=== PATIENT | male | born 1945 | race Hispanic/Latino ===

== ENCOUNTER → 2019-08-26 | Outpatient (CLI) | payer OTHER | END | disposition home or self-care (01) | LOC: RAH 13:14 | PROVIDERS: ATTEND Internal Medicine | DX: G31.9 Degenerative disease of nervous system, unspecified (principal); S09.90XS Unspecified injury of head, sequela; X58.XXXS Exposure to other specified factors, sequela | CPT/HCPCS: 70450 ==

== ENCOUNTER → 2019-12-22 | Outpatient (CLI) | payer OTHER ==
[~2019-12-22] MED LIST: IOHEXOL-350 50ML VIAL IV ONE
== END | disposition home or self-care (01) ==
LOC: RAH 13:23
PROVIDERS: ATTEND Internal Medicine
DX: I67.82 Cerebral ischemia (principal); I63.9 Cerebral infarction, unspecified; G31.1 Senile degeneration of brain, not elsewhere classified; R41.841 Cognitive communication deficit
CPT/HCPCS: 70470; Q9967

== ENCOUNTER 2020-03-12 19:12 | Observation (INO) | payer OTHER ==
[~2020-03-12] VITALS: Ht 162.6 cm; Wt 77.5 kg
[2020-03-12 20:06] LABS: BASOPHILS % (AUTO) 0.4 % (0.0-5.0); EOSINOPHILS % (AUTO) 0.1 % (0.0-8.0); HEMATOCRIT 37.8 % (42-54); LYMPHOCYTES % (AUTO) 9.6 % (21.0-51.0); MEAN CORPUSCULAR HEMOGLOBIN 30.9 pg (27.0-33.0); MEAN CORPUSCULAR HGB CONC 36.5 g/dL (32.0-36.0); MEAN CORPUSCULAR VOLUME 84.6 fL (79-99); MONOCYTES % (AUTO) 4.8 % (3.0-13.0); NEUTROPHILS % (AUTO) 84.8 % (40.0-77.0); PLATELET COUNT (AUTO) 205 K/uL (130-400); RED BLOOD CELL COUNT(AUTO) 4.47 MIL/uL (4.50-6.20); RED CELL DISTRIBUTION WIDTH 13.5 % (11.0-15.5); WHITE BLOOD COUNT (AUTO) 7.5 K/uL (4.8-10.8)
[2020-03-12 20:20] LABS: INR 0.98 (0.85-1.15); PARTIAL THROMBOPLASTIN TIME 25.5 SEC (26.3-35.5); PROTHROMBIN TIME 10.6 SEC (9.6-11.6)
[2020-03-12 20:26] LABS: APPEARANCE,URINE Clear (CLEAR); BILIRUBIN,URINE Negative (NEGATIVE); COLOR,URINE Yellow (YELLOW); GLUCOSE, URINE (UA) >=1000 mg/dL (NEGATIVE); KETONES,URINE 15 mg/dL (NEGATIVE); LEUKOCYTE ESTERASE ,URINE Negative (NEGATIVE); NITRATE,URINE Negative (NEGATIVE); OCCULT BLOOD,URINE Small (NEGATIVE); PROTEIN,URINE POS 2+ mg/dL (NEGATIVE); UROBILINOGEN,URINE 0.2 mg/dL (0.2-1.0)
[2020-03-12 20:33] LABS: AMPHET/METH SCREEN,URINE NEGATIVE (NEGATIVE); BARBITURATE SCREEN, URINE NEGATIVE (NEGATIVE); BENZODIAZEPINES SCREEN,URINE NEGATIVE (NEGATIVE); CANNABINOID SCREEN,URINE NEGATIVE (NEGATIVE); COCAINE SCREEN,URINE NEGATIVE (NEGATIVE); OPIATE SCREEN,URINE NEGATIVE (NEGATIVE); PHENCYCLIDINE SCREEN,URINE NEGATIVE (NEGATIVE); WBC,URINE 0-1 /HPF (0-1)
[2020-03-12 20:34] LABS: BACTERIA,URINE Few /HPF (None Seen); SQUAMOUS EPITHELIAL CELL,UR Rare /HPF (0-2)
[2020-03-12] MEDS ORDERED: HALOPERIDOL LACTATE 5 MG/ML VIAL ONE (20:34)
[2020-03-12 20:36] LABS: CREATININE 1.2 mg/dL (0.5-1.5); POTASSIUM 3.9 mmol/L (3.5-5.1)
[2020-03-12] MEDS ORDERED: LORAZEPAM 2 MG/ML 1 ML VIAL ONE (20:45)
[2020-03-12] MEDS ORDERED: INSULIN HUMULIN R 100 UNIT/ML 3ML ONE (20:45)
[2020-03-12 20:49] LABS: ALBUMIN 3.8 g/dL (3.5-5.0); BILIRUBIN,TOTAL 0.9 mg/dL (0.2-1.0); TOTAL PROTEIN, SERUM 7.4 g/dL (6.0-8.3); TROPONIN I 0.38 ng/mL (0.00-0.06)
[2020-03-12] MEDS ORDERED: ASPIRIN 325 MG TABLET ONE (20:55)
[2020-03-12] MEDS ORDERED: NITROGLYCERIN 1GM/1 INCH PACKET TD ONE (20:55)
[2020-03-12] MEDS ORDERED: LORAZEPAM 2 MG/ML 1 ML VIAL IVP PRN (21:30)
[2020-03-12] MEDS: CEFTRIAXONE SODIUM 1 GM IVP SCH (21:30)
[2020-03-12] MEDS ORDERED: DEXTROSE 50%-WATER 50 ML DISP.SYRIN IV PRN (21:30)
[2020-03-12] MEDS ORDERED: MORPHINE SULFATE 2 MG/ML 1ML SYG IV PRN (21:30)
[2020-03-12] MEDS ORDERED: GLUCAGON 1MG KIT 1 MG ML IM PRN (21:30)
[2020-03-12] MEDS ORDERED: SERT25TA5 PO (22:28)
[2020-03-12] MEDS ORDERED: ENAL20TA18 PO (22:28)
[2020-03-12] MEDS ORDERED: METF-446 PO (22:28)
[2020-03-12] MEDS ORDERED: CLON0.252 PO (22:28)
[2020-03-12] MEDS ORDERED: GLIP10TA9 PO (22:28)
[2020-03-12] MEDS ORDERED: QUET100T33 PO (22:28)
[2020-03-12 22:30] VITALS: BP 152/77
[2020-03-12] MEDS ORDERED: CEFTRIAXONE SODIUM 1 GM ONE (22:44)
[2020-03-13 04:00] VITALS: BP 140/78
[2020-03-13] MEDS: INSULIN HUMULIN R 100 UNIT/ML 3ML SQ SCH ×4 (05:29→21:57)
--- NOTE | 2020-03-13 05:50 | NUR ---
patient has been asleep all night. he is respectful and follows commands when awake. he is blind. i took pictures of his skin tears of his right foot and leg. i applied saline and kerlex to that area. i spoke with his and she verbalizes understanding of condition. she will come today in the morning.
--- NOTE | 2020-03-13 08:00 | NUR ---
AM SHIFT ASSESSMENT, PT. IS BLIND AND IS AT BEDSIDE AND ASST, WITH HIS CARE.
--- NOTE | 2020-03-13 08:21 | NUR ---
NOTIFIED Erika RAYGOZA OF HIGH TROPONIN LEVEL, ORDERS GIVEN AND ENTERED. NO CARDIO. CONSULT AT THIS TIME.
[2020-03-13] MEDS: FAMOTIDINE 20MG TAB 20 MG TAB PO SCH (09:12)
[2020-03-13] MEDS: ENOXAPARIN SODIUM 40 MG/0.4 ML SYRINGE SQ SCH (09:13)
[2020-03-13 09:45] LABS: TROPONIN I 0.37 ng/mL (0.00-0.06)
[2020-03-13 10:03] VITALS: BP 141/76
[2020-03-13] MEDS ORDERED: NON-FORMULARY MEDICATION 1 EACH (Sertraline HCl 25 MG) PO SCH (10:40)
[2020-03-13 12:03] LABS: TROPONIN I 0.33 ng/mL (0.00-0.06)
[2020-03-13 14:43] VITALS: BP 129/74
[2020-03-13 15:01] LABS: TROPONIN I 0.28 ng/mL (0.00-0.06)
[2020-03-13] MEDS: ENALAPRIL MALEATE 10 MG TABLET PO SCH (16:49)
[2020-03-13] MEDS: SODIUM CHLORIDE 0.9% 1000ML 1,000 ML IV SCH (16:49)
[2020-03-13 16:59] VITALS: BP 150/75
--- NOTE | 2020-03-13 18:05 | NUR ---
INITIAL: Met w pt and spouse this afternoon to discuss dcp. Per spouse, prior to admission pt was living at home. He requires BUS BOY for ambulation and needs assistance w ADLs. Pt has at home a walker and wc. Per pt's spouse dcp is for pt to return home. CM to continue to follow and wait for Md recommendations. Addendum: 03/13/20 at 1806 by SUMEET KNUTSON Amended: Links added.
[2020-03-13] MEDS ORDERED: QUETIAPINE FUMARATE 100 MG TAB ONE (18:36)
[2020-03-13] MEDS: CEFTRIAXONE SODIUM 1 GM IVP SCH ×2 (19:41→19:54)
[2020-03-13] MEDS: CLONAZEPAM 0.5 MG TABLET PO SCH (19:41)
[2020-03-13 20:00] VITALS: BP 149/80
[2020-03-13] MEDS ORDERED: QUETIAPINE FUMARATE 100 MG TAB PO SCH (21:00)
[2020-03-13] MEDS ORDERED: CLONAZEPAM 0.25 MG PO SCH (21:00)
[2020-03-14] VITALS: BP 111/55
[2020-03-14] MEDS: SODIUM CHLORIDE 0.9% 1000ML 1,000 ML IV SCH ×2 (00:55→09:00)
[2020-03-14 04:00] VITALS: BP 123/65
--- NOTE | 2020-03-14 05:58 | NUR ---
patient has psychology consult. texted doctor carleen this morning to let him know about the consult. pending call back or acknowledgement
[2020-03-14 06:08] LABS: BASOPHILS % (AUTO) 0.9 % (0.0-5.0); EOSINOPHILS % (AUTO) 1.5 % (0.0-8.0); HEMATOCRIT 33.4 % (42-54); LYMPHOCYTES % (AUTO) 21.5 % (21.0-51.0); MEAN CORPUSCULAR HEMOGLOBIN 30.5 pg (27.0-33.0); MEAN CORPUSCULAR HGB CONC 35.6 g/dL (32.0-36.0); MEAN CORPUSCULAR VOLUME 85.6 fL (79-99); MONOCYTES % (AUTO) 7.3 % (3.0-13.0); NEUTROPHILS % (AUTO) 68.4 % (40.0-77.0); PLATELET COUNT (AUTO) 158 K/uL (130-400); RED CELL DISTRIBUTION WIDTH 13.5 % (11.0-15.5); WHITE BLOOD COUNT (AUTO) 5.4 K/uL (4.8-10.8)
[2020-03-14 06:22] LABS: ALBUMIN 3.1 g/dL (3.5-5.0); BILIRUBIN,TOTAL 0.4 mg/dL (0.2-1.0); MAGNESIUM 1.6 mg/dL (1.80-2.40); POTASSIUM 3.4 mmol/L (3.5-5.1); TOTAL PROTEIN, SERUM 6.3 g/dL (6.0-8.3)
[2020-03-14] MEDS: INSULIN HUMULIN R 100 UNIT/ML 3ML SQ SCH ×2 (06:35→11:30)
[2020-03-14] MEDS ORDERED: MAGNESIUM 2GM PREMIX 50ML 50 ML IV ONE (06:38)
[2020-03-14] MEDS ORDERED: MAGNESIUM 2GM PREMIX 50ML 50 ML IV PRN (06:45)
[2020-03-14 07:59] VITALS: BP 156/82
[2020-03-14] MEDS ORDERED: SERTRALINE HCL 50 MG TABLET PO SCH (09:00)
[2020-03-14] MEDS: ENALAPRIL MALEATE 10 MG TABLET PO SCH (10:18)
[2020-03-14] MEDS: FAMOTIDINE 20MG TAB 20 MG TAB PO SCH (10:18)
[2020-03-14] MEDS: ENOXAPARIN SODIUM 40 MG/0.4 ML SYRINGE SQ SCH (10:22)
[2020-03-14] MEDS: CLONAZEPAM 0.5 MG TABLET PO SCH (10:22)
[2020-03-14 11:38] VITALS: BP 152/82
--- NOTE | 2020-03-14 14:37 | NUR ---
discharge called hanna javier for dr. medrano to clarify discharge orders..informed her there was still a pending neuro consult...she stated family does not want to change patient's medications, does not want any more medical care from the hospital but instead they prefer to follow up with his pcp...thus, pt order has been entered for d/c.
--- NOTE | 2020-03-14 15:52 | NUR ---
discharge instructions went over discharge instructions with patient and spouse...answered all questions and concerns..they will follow up with pcp tomorrow and pecan picker prescriptions sent to [facility]...removed iv with no issues...director it transferred patient to exit doors and vehicle via wheelchair..
[2020-03-14] MEDS ORDERED: CLONAZEPAM 1 MG TABLET PO SCH (21:00)
[2020-03-15] MEDS ORDERED: FLUOXETINE HCL 20 MG CAPSULE PO SCH (09:00)
== END 2020-03-14 15:45 | disposition home or self-care (01) ==
LOC: EDH 19:12 → EDHIP 21:05 → INTOOBSV 21:05 → 3DH 22:00
PROVIDERS: ADMIT Internal Medicine Critical Care Medicine; ATTEND Internal Medicine Critical Care Medicine
DX: E86.9 Volume depletion, unspecified (principal); Z20.828 Contact with and (suspected) exposure to other viral communicable diseases; R41.82 Altered mental status, unspecified; F23 Brief psychotic disorder; M62.82 Rhabdomyolysis; E11.65 Type 2 diabetes mellitus with hyperglycemia; E86.0 Dehydration; I10 Essential (primary) hypertension; R29.6 Repeated falls; F41.9 Anxiety disorder, unspecified; H54.7 Unspecified visual loss; R53.81 Other malaise; I24.9 Acute ischemic heart disease, unspecified; Z79.84 Long term (current) use of oral hypoglycemic drugs; Z79.899 Other long term (current) drug therapy
CPT/HCPCS: 36415 ×3; 70450; 71045; 80053 ×2; 80305; 81001; 82140 ×2; 82550 ×4; 82728; 82948 ×6; 83605 ×2; 83735; 83874 ×4; 83880; 84145; 84484 ×4; 85025 ×2; 85610; 85730; 86900; 86901; 87040 ×2; 87088; 87426; 93005; 96361 ×2; 96365; 96366; 96372 ×2; 96375 ×2; 99291; G0378 ×4; J0696 ×2; J1630; J1650 ×2; J1815 ×3; J2060 ×2; J3475; J7030; U0003

== ENCOUNTER 2024-06-27 13:08 | Inpatient (IN) | payer OTHER ==
[~2024-06-27] VITALS: Ht 165.1 cm; Wt 68.0 kg
[~2024-06-27 13:08] MED LIST changes: +CLON0.252 PO; +ENAL-91 PO; +GLIP10TA16 PO; -IOHEXOL-350 50ML VIAL IV ONE; +METF-446 PO; +QUET100T34 PO; +SERT-438 PO
--- NOTE | 2024-06-27 13:37 | EKG ---
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
--- NOTE | 2024-06-27 13:45 | ERN ---
General Chief Complaint: Multiple Complaints Stated Complaint: MULTIPLE COMPLAINTS Time Seen by MD: 13:14 History of Present Illness Initial Comments 79-year-old male brought in by EMS for altered mentation. Patient was history of dementia. According to the family he has not slept for about 36 hours now. He was quite agitated, and has been complaining of a possible headache. Patient is an unreliable historian, there was not a good history about what is going on. He denies any complaints at this time. Allergies: Coded Allergies: No Known Allergies (Unverified Allergy, Mild, 03/12/20) Home Meds Reported Medications Aspirin (Aspirin EC) 81 Mg Tablet.dr, 1 TAB PO DAILY for 30 Days, #30 TAB 0 Refills 06/27/24 Losartan Potassium (Losartan Potassium) 25 Mg Tablet, 1 TAB PO DAILY for 30 Days, #30 TAB 0 Refills 06/27/25 Ergocalciferol (Vitamin D2) (Vitamin D2) 1,250 Mcg (10110 Unit) Capsule, 1 CAP PO QWEEK for 28 Days, #4 CAP 0 Refills 06/27/24 Escitalopram Oxalate (Escitalopram Oxalate) 10 Mg Tablet, 1 TAB PO DAILY for 30 Days, #30 TAB 0 Refills 06/27/24 Glipizide (Glipizide ER) 5 Mg Tab.er.24, 1 TAB PO DAILY for 30 Days, #30 TAB 0 Refills 25 Clonazepam (Clonazepam) 0.25 Mg Tab.rapdis, 0.25 MG PO BID, TAB 03/12/20 Quetiapine Fumarate (Quetiapine Fumarate) 100 Mg Tablet, 100 MG PO HS, TAB 03/12/20 Sertraline HCl (Sertraline HCl) 25 Mg Tablet, 25 MG PO DAILY, TAB 03/12/20 Metformin HCl (Metformin HCl) 1,000 Mg Tablet, 1000 MG PO BIDMEALS, TAB 03/12/20 Enalapril Maleate (Enalapril Maleate) 20 Mg Tablet, 20 MG PO DAILY, TAB 03/12/20 Glipizide (Glipizide) 10 Mg Tablet, 10 MG PO BID, TAB 03/12/20 Past Medical History Past Medical History: Dementia, Diabetes-Type II, Hypertension Past Surgical History: Other ROS Dictation Unable to obtain due to patient's altered mentation Physical Exam Physical Exam Dictation VITAL SIGNS: Reviewed. GENERAL APPEARANCE: Alert, not oriented, agitated HEAD AND FACE: Non-traumatic. EYES: PERRL, pink conjunctivas, eyelid no trauma, anterior chamber clear. EARS: Pinnas intact and no signs of trauma or erythema. Ear canals clear and no discharge. TMs no erythema. NOSE: No discharge, no bleeding. OROPHARYNX: Mouth normal, teeth no caries, tongue pink. Pharynx clear, no erythema. Tonsils no exudates, no abscesses noted. Mucous membrane moist. NECK: Supple, non-tender, no thyromegaly, no masses, no JVD, no bruits. BREAST: Deferred. CHEST: No tenderness, no crepitus, no paradoxical movement, no retractions. LUNGS: Clear, well-ventilated, symmetric, no rales, no wheezing, no rhonchi, no stridor, good breath sounds bilaterally. HEART: Regular rate, regular rhythm, no murmur, no gallops. VASCULAR: No peripheral edema. ABDOMEN: Soft, positive bowel sounds, nondistended, no guarding, nontender, no rebound, no masses no hepatomegaly, no splenomegaly, no Crump's sign, no hernias. RECTAL: Deferred. GENITAL: Deferred. NEUROLOGICAL: Normal speech, gross motor function intact, gross sensory function intact. MUSCULOSKELETAL: Neck nontender, full range of motion, back nontender, full range of motion. EXTREMITIES: Nontender, full range of motion. SKIN: Color pink, dry, no turgor, no rash, no lacerations, no abrasions, no contusions. LYMPHATICS: Deferred. Results Laboratory and Microbiology Lab and Micro Result Laboratory Tests Test 06/27/24 13:43 06/27/24 14:30 White Blood Count 9.5 K/uL (4.8-10.8) Red Blood Count 4.61 MIL/uL (4.50-6.20) Hemoglobin 14.3 g/dL (14.0-18.0) Hematocrit 39.5 % (42-54) L Mean Corpuscular Volume 85.7 fL (79-99) Mean Corpuscular Hemoglobin 31.0 pg (27.0-33.0) Mean Corpuscular Hemoglobin Concent 36.2 g/dL (32.0-36.0) H Red Cell Distribution Width 13.2 % (11.0-15.5) Platelet Count 189 K/uL (130-400) Mean Platelet Volume 9.5 fL (7.5-10.5) Immature Granulocyte % (Auto) 0.4 % (0-1) Neutrophils (%) (Auto) 86.2 % (40.0-77.0) H Lymphocytes (%) (Auto) 7.3 % (21.0-51.0) L Monocytes (%) (Auto) 5.8 % (3.0-13.0) Eosinophils (%) (Auto) 0.0 % (0.0-8.0) Basophils (%) (Auto) 0.3 % (0.0-5.0) Neutrophils # (Auto) 8.2 K/uL (1.8-7.7) H Lymphocytes # (Auto) 0.7 K/uL (1.0-4.8) L Monocytes # (Auto) 0.6 K/uL (0.1-1.0) Eosinophils # (Auto) 0.00 K/uL (0.00-0.70) Basophils # (Auto) 0.03 K/uL (0.00-0.20) Absolute Immature Granulocyte (auto 0.04 K/uL (0-1) Nucleated Red Blood Cells 0.0 % (0.0-0.19) White Cell Morphology Comment See comments Red Blood Cell Morphology ANISO 1+ Sodium Level 139 mmol/L (136-145) Potassium Level 3.5 mmol/L (3.5-5.1) Chloride Level 100 mmol/L (101-111) L Carbon Dioxide Level 26 mmol/L (21-32) Blood Urea Nitrogen 17 mg/dL (7-18) Creatinine 1.3 mg/dL (0.5-1.3) Glomerular Filtration Rate Calc 56 mL/min (>90) Random Glucose 250 mg/dL (70-105) H Total Calcium 8.7 mg/dL (8.5-10.1) Ammonia < 10 umol/L (11-32) L Total Creatine Kinase 592 U/L (21-232) #*H Troponin I High Sensitivity 280.7 ng/L (4-75) *H B-Type Natriuretic Peptide 300 pg/mL (0-100) H Urine Color LIGHT-YELLOW (YELLOW) Urine Appearance CLEAR (CLEAR) Urine pH 5.5 (5.0-8.0) Urine Specific Fowler 1.014 (1.001-1.031) Urine Protein 70 mg/dL (NEGATIVE) H Urine Glucose (UA) >=1000 mg/dL (NEGATIVE) H Urine Ketones 60 mg/dL (NEGATIVE) H Urine Occult Blood MODERATE (NEGATIVE) H Urine Nitrate NEGATIVE (NEGATIVE) Urine Bilirubin NEGATIVE mg/dL (NEGATIVE) Urine Urobilinogen 0.2 mg/dL (0.2-1.0) Urine Leukocyte Esterase NEGATIVE Jose/uL Urine RBC 6-10 /HPF (0-1) H Urine WBC 2-5 /HPF (0-1) H Urine Bacteria None /HPF (None Seen) MDM CC: Altered mentation and agitation Historian: EMS due to patient's dementia. Comorbidities: Advanced age, dementia, DM two, hypertension Limitations by social determinants of health: None Differential diagnosis: Worsening dementia, infection, UTI, brain injury, electrolyte abnormalities, other. Vital signs: Stable, remained stable in the ED. EKG: Sinus rhythm rate of 88, low voltage, left axis deviation, early R-wave progression, intervals are stable no STEMI. Independently interpreted by me. Labs ( independently ordered and interpreted by me ): CBC shows no leukocytosis but there is a left shift without bands. Metabolic panel shows stable electrolytes. The troponin is elevated to 80. We will repeat. CK elevated [address] head without contrast (independently interpreted by me): No acute bleed or acute components. Consistent with chronic changes. CXR (independently interpreted by me ): No focal infiltrates cardiomegaly or acute abnormalities. Treatment in ER: IV fluids, aspirin, electrolyte replacement. Consultation: Hospitalist for admission ED Course Orders Procedure Category Date Status Time Ct Head/Brain W/O CT 06/27/24 Resulted Contrast 13:20 Ammonia LAB 06/27/24 Complete 13:20 Cardiac Panel LAB 06/27/24 Complete 13:20 Cbc With Differential LAB 06/27/24 Complete 13:20 Basic Metabolic Panel LAB 06/27/24 Complete 13:20 B-Type Natriuretic LAB 06/27/24 Complete Peptide 13:20 Urinalysis Profile LAB 06/27/24 Complete 13:20 12 Lead Ekg Tracing- EKG 06/27/24 Resulted Technical 13:26 Lorazepam 2 Mg PHA 06/27/24 Complete (Ativan) 15:30 0.9%Nacl 1000ml (Ns PHA 06/27/24 Complete 1000ml) 15:30 Troponin I High LAB 06/27/24 Complete Sensitivity 15:49 Vital Signs Date Time Temp Pulse Resp B/P (MAP) Pulse Ox O2 Delivery O2 Flow Rate FiO2 06/27/24 15:50 98.1 83 16 134/70 99 Room Air* 0 21 06/27/24 14:15 98.2 83 16 180/70 98 Room Air* 0 21 06/27/24 13:15 97.9 94 20 152/72 99 Room Air DX & DISP Disposition: Inpatient Departure Impression: Primary Impression: Dementia Additional Impressions: Altered mental state, Elevated troponin, Agitation, Rhabdomyolysis Critical Time: 30 minutes (Critical Care Procedure NoteAuthorized and Performed by: meTotal critical care time: Approximately 36 minutesDue to a high probability of clinically significant, life threatening deterioration, the patient required my highest level of preparedness to intervene emergently and I personally spent this critical care time directly and personally managing the patient. This critical care time included obtaining a history; examining the patient; pulse oximetry; ordering and review of studies; arranging urgent treatment with development of a management plan; evaluation of patient's response to treatment; frequent reassessment; and, discussions with other providers.This critical care time was performed to assess and manage the high probability of imminent, life-threatening deterioration that could result in multi-organ failure. It was exclusive of separately billable procedures and treating other patients and teaching time.Please see MDM section and the rest of the note for further information on patient assessment and treatment.) Condition: Stable Referrals: SARAH BETH POWER MD (PCP) PRADEEP SOTELO DO Jun 27, 2024 13:45 KRISTEL REYNOLDS MD Jun 27, 2024 15:41
[2024-06-27 13:53] LABS: BASOPHILS # (AUTO) 0.03 K/uL (0.00-0.20); BASOPHILS % (AUTO) 0.3 % (0.0-5.0); HEMATOCRIT 39.5 % (42-54); IMMATURE GRANULOCYTE ABSOLUTE 0.04 K/uL (0-1); LYMPHOCYTES # (AUTO) 0.7 K/uL (1.0-4.8); LYMPHOCYTES % (AUTO) 7.3 % (21.0-51.0); MEAN CORPUSCULAR HGB CONC 36.2 g/dL (32.0-36.0); MEAN CORPUSCULAR VOLUME 85.7 fL (79-99); MONOCYTES # (AUTO) 0.6 K/uL (0.1-1.0); MONOCYTES % (AUTO) 5.8 % (3.0-13.0); NEUTROPHILS # (AUTO) 8.2 K/uL (1.8-7.7); NEUTROPHILS % (AUTO) 86.2 % (40.0-77.0); PLATELET COUNT (AUTO) 189 K/uL (130-400); RED BLOOD CELL COUNT(AUTO) 4.61 MIL/uL (4.50-6.20); RED CELL DISTRIBUTION WIDTH 13.2 % (11.0-15.5); WHITE BLOOD COUNT (AUTO) 9.5 K/uL (4.8-10.8)
[2024-06-27 14:32] LABS: AMMONIA < 10 umol/L (11-32)
--- NOTE | 2024-06-27 14:32 | HMCIMG ---
CT HEAD WITHOUT CONTRAST INDICATION: Altered mental status TECHNIQUE: Noncontrast axial helical CT images from the vertex through the skull base using 5 mm slice thickness without contrast material. Coronal and sagittal reconstructions were also included. Dose reduction techniques was used using integrated, automated and adaptive dose reduction exposure control. CT was performed with one or more of the following dose reduction techniques: Automated exposure control, adjustment of the mA and/or kV according to patient size, or use of iterative reconstruction technique. COMPARISON: 03/12/2020 FINDINGS: Scattered and coalescent subcortical and periventricular white matter low attenuating areas likely represent residual of chronic small vessel arteriopathy and/or remote vascular insult. Generalized mild cerebral cortical atrophy is present.. No evidence for abnormal extra-axial fluid collections or masses. The ventricles and sulci are normal in size and configuration. No evidence for intracranial parenchymal, epidural, or subdural hemorrhage, mass effect or midline shift. The gibson-white matter differentiation is well preserved. No secondary evidence to suggest acute ischemia. Mild calcific plaque is present along the shields of the cavernous segments of both internal carotid arteries. The brainstem and cerebellum appear normal. The visualized orbits appear unremarkable. The visible paranasal sinuses and mastoid air cells are clear. The calvarium appears normal. IMPRESSION: Chronic white matter ischemic changes, mild brain atrophy, and arteriosclerotic disease as described, without acute component.
[2024-06-27 14:41] LABS: B-TYPE NATRIURETIC PEPTIDE 300 pg/mL (0-100)
[2024-06-27 14:47] LABS: CARBON DIOXIDE 26 mmol/L (21-32); CHLORIDE 100 mmol/L (101-111); CREATININE 1.3 mg/dL (0.5-1.3); GLOMERULAR FILTR. RATE CALC 56 mL/min (>90); GLUCOSE,RANDOM 250 mg/dL (70-105); POTASSIUM 3.5 mmol/L (3.5-5.1); SODIUM SERUM 139 mmol/L (136-145); UREA NITROGEN, BLOOD 17 mg/dL (7-18)
[2024-06-27 15:11] LABS: ADD UA MICROSCOPIC YES; APPEARANCE,URINE CLEAR (CLEAR); BILIRUBIN,URINE NEGATIVE (NEGATIVE); COLOR,URINE LIGHT-YELLOW (YELLOW); GLUCOSE, URINE (UA) >=1000 mg/dL (NEGATIVE); KETONES,URINE 60 mg/dL (NEGATIVE); LEUKOCYTE ESTERASE ,URINE NEGATIVE Leu/uL (NEGATIVE); NITRATE,URINE NEGATIVE (NEGATIVE); OCCULT BLOOD,URINE MODERATE (NEGATIVE); PH,URINE 5.5 (5.0-8.0); PROTEIN,URINE 70 mg/dL (NEGATIVE); UROBILINOGEN,URINE 0.2 mg/dL (0.2-1.0)
[2024-06-27 15:12] LABS: CREATINE KINASE, TOTAL 592 U/L (21-232)
[2024-06-27 15:16] LABS: MUCUS,URINE RARE LPF (None Seen)
[2024-06-27] MEDS: LORazepam 2 MG/ML 1 ML VIAL IVP ONE (15:32)
[2024-06-27] MEDS: 0.9%NACL 1000ML 1,000 ML IV ONE (15:32)
[2024-06-27] MEDS ORDERED: ESCI-8 PO (16:02)
[2024-06-27] MEDS ORDERED: LOSA25TA41 PO (16:02)
[2024-06-27] MEDS ORDERED: GLIP-162 PO (16:02)
[2024-06-27] MEDS ORDERED: ASPI-1443 PO (16:02)
[2024-06-27] MEDS ORDERED: ERGO500093 PO (16:02)
--- NOTE | 2024-06-27 16:03 | NUR ---
MED REC DONE AT THIS TIME.
[2024-06-27 16:29] LABS: HEMOGLOBIN A1C 6.4 % (4.0-6.0)
[2024-06-27] MEDS ORDERED: PoTASSium chloRIDE 20MEQ ER 20 MEQ ERTAB PO PRN (16:30)
[2024-06-27 16:46] LABS: BILIRUBIN,TOTAL 1.2 mg/dL (0.2-1.0); THYROID STIMULATING HORMONE 0.77 uIU/mL (0.36-3.74); TOTAL PROTEIN, SERUM 6.2 g/dL (6.0-8.3)
[2024-06-27 16:52] LABS: ALBUMIN 3.4 g/dL (3.5-5.0)
[2024-06-27 16:54] LABS: BILIRUBIN,DIRECT 0.2 mg/dL (0.0-0.3)
--- NOTE | 2024-06-27 16:57 | HMCIMG ---
INDICATION: r/o any significant infiltrates TECHNIQUE: CHEST 1VW COMPARISON: 03/12/2020 FINDINGS/IMPRESSION: Prominent bilateral interstitial markings which may represent bronchitis or vascular congestion in the proper clinical setting. Cardiac silhouette is within normal limits. Mild degenerative changes of the spine. The visualized upper abdomen appears unremarkable.
--- NOTE | 2024-06-27 17:01 | HMCIMG ---
KNEE 2VW BILATERAL INDICATION: recent fall, r/o any fractures TECHNIQUE: KNEE 2VW BILATERAL. FINDINGS/IMPRESSION: Bipartite versus chronic fracture of the left patella. Correlate clinically. No acute displaced fractures identified. There is no joint effusion or soft tissue swelling. Vascular calcifications are noted. There is diffuse osteopenia limiting evaluation of the study.
--- NOTE | 2024-06-27 17:01 | HMCIMG ---
PELVIS 1-2VWS HISTORY: recent fall, r/o any fractures TECHNIQUE: Frontal view of the pelvis was performed. FINDINGS/IMPRESSION: No displaced fracture or dislocation is identified. Correlate clinically. Diffuse osteopenia is seen degrading evaluation of the study. Degenerative changes of the visualized spine are seen.
[2024-06-27] MEDS: cefTRIAXone 1G VIAL IVPB SCH (18:07)
[2024-06-27] MEDS: PANTOPrazole 40 MG/VIAL IVP SCH (18:07)
[2024-06-27] MEDS: THIAMINE HCL 100 MG/ML 2ML VIAL IVP SCH (18:08)
[2024-06-27] MEDS: LACTATED RINGERS 1000ML 1,000 ML IV SCH (18:08)
--- NOTE | 2024-06-27 19:10 | HMCIMG ---
KNEE 3VWS LT INDICATION: r/o any patella fracture TECHNIQUE: KNEE 3VWS LT. FINDINGS/IMPRESSION: Bipartite patella versus chronic fracture of the superior patella, as described on prior study. Correlate clinically. There is mild soft tissue swelling No radiopaque foreign body is identified. There is diffuse osteopenia limiting evaluation of the study.
--- NOTE | 2024-06-27 19:24 | HP ---
[facility] HISTORY AND PHYSICAL Date of Service: Jun 27, 2024 Time of Service: 19:24 HISTORY OF PRESENT ILLNESS: Date of service: 06/27/2024, patient was seen in ER hallway C 79-year-old male with underlying history of hypertension, hyperlipidemia, advanced Alzheimer's dementia (originally diagnosed about 12 years ago) who presented to the ER for further evaluation of agitation, confusion, hallucinations and inability to sleep for about 36 hours. Patient received 2 mg of IV Ativan earlier and unable to provide any history whatsoever, patient is sleeping on the stretcher. Patient's was present at bedside and states that patient has had long-term history of Alzheimer's dementia. He needs assistance with activities of daily living including bathing, cleaning in eating. Over the last several days, patient has been very agitated, unable to sleep and was complaining of mild headache as well. He is not very active and is mostly sedentary. Patient had a fall yesterday but is unsure if patient hit his head. He has had chronic significant pain of his bilateral lower extremities that limits his activities. Patient is followed by Dr. Serrano as outpatient and previously was on Seroquel, currently he is being escitalopram as outpatient. He is currently not on any antipsychotics or benzodiazepine. Does report that, when patient gets UTIs, he gets more agitated and confused. 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 states that patient previously has not been evaluated by Cardiology as outpatient. On presentation to the hospital, patient was noted to be afebrile and hemodynam ically stable. Labs on presentation showed, WBC count of 9400, hemoglobin of 14.3, platelet count of [id number]. BMP remarkable for sodium 139, potassium 3.5, creatinine 1.3, blood glucose of 250, CK of 592, troponin noted to be at 281. states that patient did take two doses of aspirin earlier this morning prior to coming to the ER. He will be admitted for further management of worsening delirium in the setting of advanced dementia. Patient is dehydrated with recent fall and cardiac troponin is also noted to be elevated. CK is also elevated suggestive of mild rhabdomyolysis. has requested full code for this patient even though I explained to her that patient has advanced dementia. Patient will be admitted under hospitalist service. Patient will receive IV fluid and IV antibiotic therapy., we will monitor this patient closely. 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 Coded Allergies: No Known Allergies (Unverified Allergy, Mild, 03/12/20) PHYSICAL EXAM GENERAL APPEARANCE: The patient is awake, alert, and oriented, in no acute cardiopulmonary distress. NEUROLOGICAL: Cranial nerves II-XII grossly intact. Motor is 5/5 in bilateral upper and lower extremities proximal to distal. No sensory deficits. HEENT: Face is symmetric. Pupils are equal and reactive. Extraocular movements are intact. NECK: Supple. No JVD. No thyromegaly. No submental, submandibular, pre- /postauricular, occipital or supraclavicular lymphadenopathy. CHEST: Normal chest expansion. No Telemetry. LUNGS: Absence of any rales, rhonchi or any wheezing. CARDIOVASCULAR: Regular. S1 and S2 normal. No appreciable rubs, murmurs or gallops. ABDOMEN: Soft, nontender, and nondistended. There is no rebound, voluntary guarding, or rigidity. : Deferred. No Palmer. EXTREMITIES: Non-edematous and not cyanotic. No clubbing. Good capillary refill. SKIN: No skin breakdown. Vital Sign (Last 24 Hours) 06/27/24 18:20 Temp 98.1 Pulse 80 Resp 16 B/P (MAP) 136/80 Pulse Ox 99 O2 Delivery Room Air* O2 Flow Rate 0 FiO2 21 LABS: Laboratory: Test 06/27/24 16:09 06/27/24 14:30 06/27/24 13:43 Range/Units Hemoglobin A1c 6.4 H 4.0-6.0 % Estimated Average Glucose (eAG) 137 H 70-126 mg/dL Magnesium Level 1.30 L 1.80-2.40 mg/dL Total Bilirubin 1.2 H 0.2-1.0 mg/dL Direct Bilirubin 0.2 0.0-0.3 mg/dL Aspartate Amino Transf (AST/SGOT) 38 H 10-37 U/L Alanine Aminotransferase (ALT/SGPT) 27 12-78 U/L Alkaline Phosphatase 78 50-136 U/L Ammonia 13 11-32 umol/L Troponin I High Sensitivity 362 *H 4-75 ng/L C-Reactive Protein, Quantitative 0.70 0.5-3.0 mg/L Total Protein 6.2 6.0-8.3 g/dL Albumin 3.4 L 3.5-5.0 g/dL Thyroid Stimulating Hormone (TSH) 0.77 0.36-3.74 uIU/mL Urine Color LIGHT-YELLOW YELLOW Urine Appearance CLEAR CLEAR Urine pH 5.5 5.0-8.0 Urine Specific [place] 1.014 1.001-1.031 Urine Protein 70 H NEGATIVE mg/dL Urine Glucose (UA) >=1000 H NEGATIVE mg/dL Urine Ketones 60 H NEGATIVE mg/dL Urine Occult Blood MODERATE H NEGATIVE Urine Nitrate NEGATIVE NEGATIVE Urine Bilirubin NEGATIVE NEGATIVE mg/dL Urine Urobilinogen 0.2 0.2-1.0 mg/dL Urine Leukocyte Esterase NEGATIVE NEGATIVE Jose/uL Urine RBC 6-10 H 0-1 /HPF Urine WBC 2-5 H 0-1 /HPF Urine Bacteria None None Seen /HPF White Blood Count 9.5 4.8-10.8 K/uL Red Blood Count 4.61 4.50-6.20 MIL/uL Hemoglobin 14.3 14.0-18.0 g/dL Hematocrit 39.5 L 42-54 % Mean Corpuscular Volume 85.7 79-99 fL Mean Corpuscular Hemoglobin 31.0 27.0-33.0 pg Mean Corpuscular Hemoglobin Concent 36.2 H 32.0-36.0 g/dL Red Cell Distribution Width 13.2 11.0-15.5 % Platelet Count 189 130-400 K/uL Mean Platelet Volume 9.5 7.5-10.5 fL Immature Granulocyte % (Auto) 0.4 0-1 % Neutrophils (%) (Auto) 86.2 H 40.0-77.0 % Lymphocytes (%) (Auto) 7.3 L 21.0-51.0 % Monocytes (%) (Auto) 5.8 3.0-13.0 % Eosinophils (%) (Auto) 0.0 0.0-8.0 % Basophils (%) (Auto) 0.3 0.0-5.0 % Neutrophils # (Auto) 8.2 H 1.8-7.7 K/uL Lymphocytes # (Auto) 0.7 L 1.0-4.8 K/uL Monocytes # (Auto) 0.6 0.1-1.0 K/uL Eosinophils # (Auto) 0.00 0.00-0.70 K/uL Basophils # (Auto) 0.03 0.00-0.20 K/uL Absolute Immature Granulocyte (auto 0.04 0-1 K/uL Nucleated Red Blood Cells 0.0 0.0-0.19 % White Cell Morphology Comment See comments Red Blood Cell Morphology ANISO 1+ Sodium Level 139 136-145 mmol/L Potassium Level 3.5 3.5-5.1 mmol/L Chloride Level 100 L 101-111 mmol/L Carbon Dioxide Level 26 21-32 mmol/L Blood Urea Nitrogen 17 7-18 mg/dL Creatinine 1.3 0.5-1.3 mg/dL Glomerular Filtration Rate Calc 56 >90 mL/min Random Glucose 250 H 70-105 mg/dL Total Calcium 8.7 8.5-10.1 mg/dL Total Creatine Kinase 592 #*H 21-232 U/L B-Type Natriuretic Peptide 300 H 0-100 pg/mL Current Medications Medications (Trade) Dose Ordered Sig/Jaxon Route PRN Reason Start Time Stop Time Status Last Admin Dose Admin Acetaminophen (TYLenol 500MG TAB) 500 mg Q6H PRN PO MILD PAIN (1-3) 06/27/24 16:00 07/27/24 15:59 Aspirin (Aspirin 81mg Ec Tab) 81 mg DAILY PO 06/28/24 09:00 07/28/24 08:59 Ceftriaxone Sodium (ROCEphine 1G INJ) 1 gm Q12H IVPB 06/27/24 16:30 07/07/24 16:29 06/27/24 18:07 1 GM Citalopram Hydrobromide (CeleXA 20MG TAB) 20 mg DAILY PO 06/28/24 09:00 07/28/24 08:59 Lactated Ringer's 1,000 ml @ 80 mls/hr [id number] IV 06/27/24 16:00 07/27/24 15:59 06/27/24 18:08 80 MLS/HR Losartan Potassium (CozAAR 25MG TAB) 25 mg DAILY PO 06/28/24 09:00 07/28/24 08:59 Magnesium Sulfate 50 ml @ 0 mls/hr PROTOCOL IV 06/27/24 16:30 07/27/24 16:29 Pantoprazole Sodium (PROTonix 40MG INJ) 40 mg Q24H IVP 06/27/24 16:30 07/27/24 16:29 06/27/24 18:07 40 MG Potassium Chloride 100 ml @ 100 mls/hr AD PRN IV POTASSIUM PROTOCOL 06/27/24 16:30 07/27/24 16:29 Potassium Chloride (K-Dur/Klor-Con 20meq) 20 meq AD PRN PO POTASSIUM PROTOCOL 06/27/24 16:30 07/27/24 16:29 Potassium Chloride (KCl 10% Elixir 20meq/15ml) 20 meq AD PRN PO POTASSIUM PROTOCOL 06/27/24 16:30 07/27/24 16:29 Thiamine HCl (Vitamin B-1) 100 mg Q24H IVP 06/27/24 16:00 07/27/24 15:59 06/27/24 18:08 100 MG DIAGNOSTICS / RADIOLOGY: SERVICE 1320 REASON: altered ORDERING PHYSICIAN: PRADEEP SOTELO DO PROCEDURE: HEAD WO - CT HEAD/BRAIN W/O CONTRAST CT HEAD WITHOUT CONTRAST INDICATION: Altered mental status TECHNIQUE: Noncontrast axial helical CT images from the vertex through the skull base using 5 mm slice thickness without contrast material. Coronal and sagittal reconstructions were also included. Dose reduction techniques was used using integrated, automated and adaptive dose reduction exposure control. CT was performed with one or more of the following dose reduction techniques: Automated exposure control, adjustment of the mA and/or kV according to patient size, or use of iterative reconstruction technique. COMPARISON: 03/12/2020 FINDINGS: Scattered and coalescent subcortical and periventricular white matter low attenuating areas likely represent residual of chronic small vessel arteriopathy and/or remote vascular insult. Generalized mild cerebral cortical atrophy is present.. No evidence for abnormal extra-axial fluid collections or masses. The ventricles and sulci are normal in size and configuration. No evidence for intracranial parenchymal, epidural, or subdural hemorrhage, mass effect or midline shift. The gibson-white matter differentiation is well preserved. No secondary evidence to suggest acute ischemia. Mild calcific plaque is present along the shields of the cavernous segments of both internal carotid arteries. The brainstem and cerebellum appear normal. The visualized orbits appear unremarkable. The visible paranasal sinuses and mastoid air cells are clear. The calvarium appears normal. IMPRESSION: Chronic white matter ischemic changes, mild brain atrophy, and arteriosclerotic disease as described, without acute component. DICTATED BY: BAIRON OCAMPO MD DATE: 06/27/24 1426 ELECTRONICALLY SIGNED BY: BAIRON OCAMPO MD DATE: 06/27/24 1432 [facility] 181 REASON: r/o any patella fracture ORDERING PHYSICIAN: SHAYNE BORGES MD PROCEDURE: KNEE 3V LT - KNEE 3VWS LT KNEE 3VWS LT INDICATION: r/o any patella fracture TECHNIQUE: KNEE 3VWS LT. FINDINGS/IMPRESSION: Bipartite patella versus chronic fracture of the superior patella, as described on prior study. Correlate clinically. There is mild soft tissue swelling No radiopaque foreign body is identified. There is diffuse osteopenia limiting evaluation of the study. DICTATED BY: RAY BOGGS MD DATE: 06/27/241906 ELECTRONICALLY SIGNED BY: RAY BOGGS MD DATE: 06/27/241909 ASSESSMENT: Acute delirium in the setting of advanced Alzheimer's dementia, POA Visual hallucinations, POA Insomnia, POA Recent history of fall, POA Debility/frailty, POA Elevated troponin, POA, rule out active ACS Rhabdomyolysis, POA Possible left patellar fracture versus bipartite left patella, POA History of UTI, POA History of type 2 diabetes mellitus, POA Hypertension, POA Hyperlipidemia, POA Blindness of bilateral eyes, POA PLAN: Patient will be admitted to medical-surgical floor under telemetry monitoring We will trend troponin to rule out active ACS Patient received IV Ativan earlier in the ER, and is asleep. He initially presented to the ER with significant agitation, confusion and insomnia for the past two days. We will obtain urinalysis, we will keep patient on IV Rocephin and we will keep IV hydration with LR at 75 cc an hour I spoke with Dr. Hill with Cardiology, we will obtain 2D echocardiogram, once patient is awake and alert, we will start patient on aspirin 81 mg daily, patient has advanced dementia, we will need to discuss with patient's about how aggressive the wound to be with plan of care for the patient We will have Neurology evaluate patient and see if patient will benefit from any antipsychotics given significant hallucinations and behavioral disturbance X-ray of the left knee showed possible fracture versus bipartite patella, discussed with Dr. Boateng with Orthopedics for further evaluation Patient will continue with rest of the home medications All labs will be repeated in the morning Patient will benefit from palliative care, we will have social media designer follow this patient and case management to assist with discharge planning Date of service: 06/27/24 Plan of care was discussed with at bedside, has requested full code for the patient, Shayne Borges MD Advanced Care Planning: Which of the following were discussed: Hospice care: Yes __ No _X_ Therapeutic options: Yes _X_ No __ Advance directives: Yes _X_ No __ Other discussions: Discussed with who?: Patient Voluntary nature of this service was explained to the patient? Yes _x_ No __ Amount of time spent: 20 minutes SHAYNE BORGES MD Jun 27, 2024 19:24
[2024-06-27] MEDS: MAGNESIUM 2GM PREMIX 50ML 50 ML IV SCH (19:59)
[2024-06-27] MEDS: ASPIRIN 81MG CHEW TAB PO ONE (20:29)
--- NOTE | 2024-06-27 21:02 | CONS ---
CONSULT NOTE: CARDIOLOGY Reason for consult: Elevated troponin HPI/story at presentation: This is a pleasant 79-year-old male with past medical history significant for advanced dementia presents with a fall and found to have rhabdomyolysis. Sitting on patient elevated troponin level, cardiology was consulted for further evaluation management Unable to get history from patient given advanced dementia Subjective: 06/27/2024 sedated Past medical history: See below Allergies, Meds See chart Review of systems not oobtained Vitals see chart PHYSICAL EXAMINATION GENERAL: LETHARGUC 06/27/2024 HEENT: Nonicteric sclerae, non traumatic HEART: Regular rate and rhythm with no murmurs LUNGS: Clear to auscultation bilaterally ABDOMEN: No acute issues, non tender GENITAL, RECTAL: deferred SKIN: No rash NEUROLOGIC: LETHARGUC 06/27/2024 EXTREMITIES: No edema ASSESSMENT ALTERED MENTAL STATUS On sedation, 06/27/2024 In the setting of advanced Alzheimer's dementia Significant baseline debility ELEVATED TROPONIN In the setting rhabdomyolysis, 06/2024 Presented with a fall Peak troponin greater than 900 Elevated creatinine kinase at presentation HYPERTENSION, HYPERLIPIDEMIA CORE MEASURES Pending OTHER MEDICAL PROBLEMS History of urinary tract infection History of blindness History of appendectomy Left patella fracture versus bipartite left patella PLAN 06/27/2024 lethargic today after sedation. No active cardiac complaints noted prior to presentation. History. Troponin elevation thought to be type II in the setting of rhabdomyolysis. Even if patient did have possible ACS in the differential, and plans dementia, not the best candidate for ischemic evaluation. Will reevaluate after echocardiogram is complete. Seen and examined 06/27/2024 at around 8 PM ATTESTATION I was involved substantially in the care of this patient Number and complexity of problems addressed: 1 acute illness with systemic features Amount and or complexity of data Review of prior external note(s) from each unique source: 2+ Ordering of each unique test : 0 Review of the result(s) of each unique test: 2+ Assessment requiring an independent historian(s): No Independent interpretation of test performed by another MD/QHCP/appropriate source (not separately reported) : No Discussion of management or test interpretation with external MD/QHCP/appropriate source (not separately reported) : No Risk status (cardiac, billing related):CATRACHITA Cowan MD Jun 27, 2024 21:02
[2024-06-27 23:42] VITALS: BP 160/75; PULSE 78; RESP 20; TEMP 98
[2024-06-28] VITALS (9 sets, daily range): BP systolic 130–209; BP diastolic 67–102; PULSE 72–96; RESP 18–21; TEMP 97.8–98.3; O2SAT 98–99
[2024-06-28 01:46] LABS: CREATINE KINASE, TOTAL 490 U/L (21-232)
[2024-06-28 02:27] LABS: CREATININE 1.1 mg/dL (0.5-1.3); MAGNESIUM 1.9 mg/dL (1.80-2.40)
[2024-06-28] MEDS: PoTASSium chloRIDE 20MEQ/100ML 100 ML IV PRN (02:40)
[2024-06-28] MEDS: acetaMINOPHEN 500 MG TABLET PO PRN (02:56)
[2024-06-28 06:55] LABS: BASOPHILS # (AUTO) 0.04 K/uL (0.00-0.20); BASOPHILS % (AUTO) 0.4 % (0.0-5.0); EOSINOPHILS # (AUTO) 0.03 K/uL (0.00-0.70); EOSINOPHILS % (AUTO) 0.3 % (0.0-8.0); HEMATOCRIT 36.7 % (42-54); IMMATURE GRANULOCYTE ABSOLUTE 0.03 K/uL (0-1); LYMPHOCYTES # (AUTO) 1.2 K/uL (1.0-4.8); LYMPHOCYTES % (AUTO) 12.9 % (21.0-51.0); MEAN CORPUSCULAR HEMOGLOBIN 31.7 pg (27.0-33.0); MEAN CORPUSCULAR HGB CONC 36.8 g/dL (32.0-36.0); MEAN CORPUSCULAR VOLUME 86.2 fL (79-99); MONOCYTES # (AUTO) 0.5 K/uL (0.1-1.0); MONOCYTES % (AUTO) 5.9 % (3.0-13.0); NEUTROPHILS # (AUTO) 7.3 K/uL (1.8-7.7); NEUTROPHILS % (AUTO) 80.2 % (40.0-77.0); PLATELET COUNT (AUTO) 171 K/uL (130-400); RED BLOOD CELL COUNT(AUTO) 4.26 MIL/uL (4.50-6.20); RED CELL DISTRIBUTION WIDTH 13.4 % (11.0-15.5); WHITE BLOOD COUNT (AUTO) 9.2 K/uL (4.8-10.8)
[2024-06-28] MEDS: citaLOPram 20 MG TABLET PO SCH (08:48)
[2024-06-28] MEDS: ASPIRIN 81 MG EC TAB PO SCH (08:48)
[2024-06-28] MEDS: LoSARTan 25 MG TABLET PO SCH (08:49)
--- NOTE | 2024-06-28 11:00 | NUR ---
BEDSIDE SWALLOW EVAL COMPLETED. s/s of aspiration observed WITH THIN AND MIXED CONSISTENCIES SECONDARY TO SIGNIFICANT SWALLOW DELAY. Recommend mechanical soft/BITE SIZE solids, NECTAR THICK liquids, and pills CRUSHED WITH PUREE as tolerated. Compensatory strategies: 1. sit upright during and 30 minutes after meals 2. slow oral intake 3. small bites/sips 4. FEED ONLY WHEN ALERT 5. ASSIST WITH FEEDING Pt downgraded to mechanical soft/BITE SIZE solids due to overall debility AND ORAL MOTOR WEAKNESS WITH LABORED MASTICATION. CAFETERIA SERVER reviewed results and recommendations with patient and nurse. RECOMMEND MBSS TO FULLY ASSESS SWALLOW FUNCTION AND DETERMINE LEAST RESTRICTIVE DIET FOR Pt. [facility] PENDING MBSS RESULTS. Addendum: 06/28/24 at 1448 by AKBAR JUARES Amended: Links added.
--- NOTE | 2024-06-28 11:20 | PN ---
[facility] PROGRESS NOTE Date of Service: Jun 28, 2024 Time of Service: 11:16 SUBJECTIVE: [ Patient is a 79-year-old male who is awake and alert oriented to person and place but not to time. He does have a history of advanced Alzheimer's dementia. He was admitted with a history of a fall and rhabdomyolysis and elevated troponin. He is in no acute distress at the present time he denies chest pain or shortness for breath. ] REVIEW OF SYSTEMS Ten points were reviewed and negative PHYSICAL EXAM GENERAL APPEARANCE: The patient is awake, alert, and oriented, in no acute cardiopulmonary distress. NEUROLOGICAL: Cranial nerves II-XII grossly intact. Motor is 5/5 in bilateral upper and lower extremities proximal to distal. No sensory deficits. HEENT: Face is symmetric. Pupils are equal and reactive. Extraocular movements are intact. NECK: Supple. No JVD. No thyromegaly. No submental, submandibular, pre- /postauricular, occipital or supraclavicular lymphadenopathy. CHEST: Normal chest expansion. No Telemetry. LUNGS: Absence of any rales, rhonchi or any wheezing. CARDIOVASCULAR: Regular. S1 and S2 normal. No appreciable rubs, murmurs or gallops. ABDOMEN: Soft, nontender, and nondistended. There is no rebound, voluntary guarding, or rigidity. : Deferred. No Palmer. EXTREMITIES: Non-edematous and not cyanotic. No clubbing. Good capillary refill. SKIN: No skin breakdown. Vital Signs (last 8hr) Date Time Temp Pulse Resp B/P (MAP) Pulse Ox O2 Delivery O2 Flow Rate FiO2 06/28/24 08:00 98 Room Air* 0 21 06/28/24 08:00 98.2 75 18 139/78 96 Room Air 06/28/24 04:00 98.1 77 21 130/68 98 Room Air 06/28/24 03:40 77 18 130/68 LABS: Laboratory: Test 06/28/24 06:33 06/28/24 04:55 06/28/24 01:03 06/27/24 16:09 Range/Units White Blood Count 9.2 4.8-10.8 K/uL Red Blood Count 4.26 L 4.50-6.20 MIL/uL Hemoglobin 13.5 L 14.0-18.0 g/dL Hematocrit 36.7 L 42-54 % Mean Corpuscular Volume 86.2 79-99 fL Mean Corpuscular Hemoglobin 31.7 27.0-33.0 pg Mean Corpuscular Hemoglobin Concent 36.8 H 32.0-36.0 g/dL Red Cell Distribution Width 13.4 11.0-15.5 % Platelet Count 171 130-400 K/uL Mean Platelet Volume 9.4 7.5-10.5 fL Immature Granulocyte % (Auto) 0.3 0-1 % Neutrophils (%) (Auto) 80.2 H 40.0-77.0 % Lymphocytes (%) (Auto) 12.9 L 21.0-51.0 % Monocytes (%) (Auto) 5.9 3.0-13.0 % Eosinophils (%) (Auto) 0.3 0.0-8.0 % Basophils (%) (Auto) 0.4 0.0-5.0 % Neutrophils # (Auto) 7.3 1.8-7.7 K/uL Lymphocytes # (Auto) 1.2 1.0-4.8 K/uL Monocytes # (Auto) 0.5 0.1-1.0 K/uL Eosinophils # (Auto) 0.03 0.00-0.70 K/uL Basophils # (Auto) 0.04 0.00-0.20 K/uL Absolute Immature Granulocyte (auto 0.03 0-1 K/uL Nucleated Red Blood Cells 0.0 0.0-0.19 % Total Creatine Kinase 330 #H 21-232 U/L Troponin I High Sensitivity 799.0 *H 4-75 ng/L Whole Blood Glucose 147 H 70-110 MG/DL Sodium Level 139 136-145 mmol/L Potassium Level 3.0 *L 3.5-5.1 mmol/L Chloride Level 101 101-111 mmol/L Carbon Dioxide Level 29 21-32 mmol/L Blood Urea Nitrogen 14 7-18 mg/dL Creatinine 1.1 0.5-1.3 mg/dL Glomerular Filtration Rate Calc 68 >90 mL/min Random Glucose 140 H 70-105 mg/dL Total Calcium 8.2 L 8.5-10.1 mg/dL Magnesium Level 1.90 1.80-2.40 mg/dL Hemoglobin A1c 6.4 H 4.0-6.0 % Estimated Average Glucose (eAG) 137 H 70-126 mg/dL Total Bilirubin 1.2 H 0.2-1.0 mg/dL Direct Bilirubin 0.2 0.0-0.3 mg/dL Aspartate Amino Transf (AST/SGOT) 38 H 10-37 U/L Alanine Aminotransferase (ALT/SGPT) 27 12-78 U/L Alkaline Phosphatase 78 50-136 U/L Ammonia 13 11-32 umol/L C-Reactive Protein, Quantitative 0.70 0.5-3.0 mg/L Total Protein 6.2 6.0-8.3 g/dL Albumin 3.4 L 3.5-5.0 g/dL Procalcitonin < 0.05 L 0.05-0.5 ng/mL Thyroid Stimulating Hormone (TSH) 0.77 0.36-3.74 uIU/mL Test 06/27/24 14:30 06/27/24 13:43 Range/Units Urine Color LIGHT-YELLOW YELLOW Urine Appearance CLEAR CLEAR Urine pH 5.5 5.0-8.0 Urine Specific [place] 1.014 1.001-1.031 Urine Protein 70 H NEGATIVE mg/dL Urine Glucose (UA) >=1000 H NEGATIVE mg/dL Urine Ketones 60 H NEGATIVE mg/dL Urine Occult Blood MODERATE H NEGATIVE Urine Nitrate NEGATIVE NEGATIVE Urine Bilirubin NEGATIVE NEGATIVE mg/dL Urine Urobilinogen 0.2 0.2-1.0 mg/dL Urine Leukocyte Esterase NEGATIVE NEGATIVE Jose/uL Urine RBC 6-10 H 0-1 /HPF Urine WBC 2-5 H 0-1 /HPF Urine Bacteria None None Seen /HPF White Cell Morphology Comment See comments Red Blood Cell Morphology ANISO 1+ B-Type Natriuretic Peptide 300 H 0-100 pg/mL Current Medications Medications (Trade) Dose Ordered Sig/Jaxon Route PRN Reason Start Time Stop Time Status Last Admin Dose Admin Acetaminophen (TYLenol 500MG TAB) 500 mg Q6H PRN PO MILD PAIN (1-3) 06/27/24 16:00 07/27/24 15:59 06/28/24 02:56 500 MG Aspirin (Aspirin 81mg Ec Tab) 81 mg DAILY PO 06/28/24 09:00 07/28/24 08:59 Ceftriaxone Sodium (ROCEphine 1G INJ) 1 gm Q12H IVPB 06/27/24 16:30 07/07/24 16:29 06/28/24 06:33 1 GM Citalopram Hydrobromide (CeleXA 20MG TAB) 20 mg DAILY PO 06/28/24 09:00 07/28/24 08:59 Hydralazine HCl (APRESOLine 20MG INJ) 10 mg Q6H PRN IV ADMINISTER FOR SBP > 170 06/28/24 11:00 07/28/24 10:59 Lactated Ringer's 1,000 ml @ 80 mls/hr [id number] IV 06/27/24 16:00 07/27/24 15:59 06/27/24 18:08 80 MLS/HR Lorazepam (AtiVAN) 0.5 mg Q12H PRN IVP ANXIETY/AGITATION 06/27/24 20:30 07/04/24 20:29 Losartan Potassium (CozAAR 25MG TAB) 25 mg DAILY PO 06/28/24 09:00 07/28/24 08:59 Magnesium Sulfate 50 ml @ 0 mls/hr PROTOCOL IV 06/27/24 16:30 06/27/24 20:24 DC 06/27/24 19:59 25 MLS/HR Magnesium Sulfate 50 ml @ 0 mls/hr PROTOCOL IV 06/27/24 20:30 07/27/24 20:29 Pantoprazole Sodium (PROTonix 40MG INJ) 40 mg Q24H IVP 06/27/24 16:30 07/27/24 16:29 06/27/24 18:07 40 MG Potassium Chloride 100 ml @ 100 mls/hr AD PRN IV POTASSIUM PROTOCOL 06/27/24 16:30 07/27/24 16:29 06/28/24 02:40 100 MLS/HR Potassium Chloride (K-Dur/Klor-Con 20meq) 20 meq AD PRN PO POTASSIUM PROTOCOL 06/27/24 16:30 07/27/24 16:29 Potassium Chloride (KCl 10% Elixir 20meq/15ml) 20 meq AD PRN PO POTASSIUM PROTOCOL 06/27/24 16:30 07/27/24 16:29 Thiamine HCl (Vitamin B-1) 100 mg Q24H IVP 06/27/24 16:00 07/27/24 15:59 06/27/24 18:08 100 MG DIAGNOSTICS / RADIOLOGY: [ ] ASSESSMENT: Acute delirium in the setting of advanced Alzheimer's dementia, POA Visual hallucinations, POA Insomnia, POA Recent history of fall, POA Debility/frailty, POA Elevated troponin, POA, rule out active ACS Rhabdomyolysis, POA Possible left patellar fracture versus bipartite left patella, POA History of UTI, POA History of type 2 diabetes mellitus, POA Hypertension, POA Hyperlipidemia, POA Blindness of bilateral eyes, POA Hypokalemia PLAN: Patient will be admitted to medical-surgical floor under telemetry monitoring We will trend troponin to rule out active ACS Currently resting comfortably We will obtain urinalysis, we will keep patient on IV Rocephin and we will keep IV hydration with LR at 75 cc an hour I spoke with Dr. Hill with Cardiology, we will obtain 2D echocardiogram, once patient is awake and alert, we will start patient on aspirin 81 mg daily, patient has advanced dementia, we will need to discuss with patient's about how aggressive the wound to be with plan of care for the patient We will have Neurology evaluate patient and see if patient will benefit from any antipsychotics given significant hallucinations and behavioral disturbance X-ray of the left knee showed possible fracture versus bipartite patella, discussed with Dr. Boateng with Orthopedics for further evaluation Patient will continue with rest of the home medications All labs will be repeated in the morning Patient will benefit from palliative care, we will have social media marketing analyst follow this patient and case management to assist with discharge planning Currently under potassium coverage we will check a magnesium level in the a.m. as well No family member present at the bedside has requested full code for the patient, Advanced Care Planning: ALICJA RODRIGUEZ MD Jun 28, 2024 11:20
--- NOTE | 2024-06-28 11:58 | CONS ---
CONSULTATION NOTE Date of Service: Jun 28, 2024 Reason for Consultation: left knee bipartite patella Requesting Physician: Jony HISTORY OF PRESENT ILLNESS: 79 yo M poor historian. States he fell. Reports left knee pain even before fall. Reports that he doesn't walk much but also does no use assistive device. He says he gets around ok for a "crippled man," but I could not get him to further explain this statement. REVIEW OF SYSTEMS CONSTITUTIONAL: Denies fever, chills, or fatigue. HEAD/FACE: No signs of trauma. EENT: Denies eye pain, blurred vision, double vision, or light sensitivity. RESPIRATORY: Denies shortness of breath, cough, wheezing CARDIOVASCULAR: Denies chest pain, palpitation, syncope GASTROINTESTINAL/ABDOMINAL: Denies abdominal pain, constipation, diarrhea, nausea or vomiting GENITOURINARY: Denies dysuria or hematuria. MUSCULOSKELETAL: Reports joint pain, denies tenderness, or trauma. INTEGUMENTARY: Denies rash or itchiness NEUROLOGICAL/PSYCH: Denies anxiety, depression, heat or cold intolerance. PAST MEDICAL HISTORY: dementia, hypothyroid and DM per patient PAST SURGICAL HISTORY: appendectomy PAST SOCIAL HISTORY: negative x 3 lives with spouse, ambulates no assistive device FAMILY HISTORY: NC Coded Allergies: No Known Allergies (Unverified Allergy, Mild, 03/12/20) PHYSICAL EXAM EYES: Anicteric. HENT: poor dentition NECK: Supple LUNGS: nonlabored breathing CARDIOVASCULAR: regular rate ABDOMEN: nondistended CENTRAL NERVOUS SYSTEM: Awake, alert, oriented x 3. No focal deficits. SKIN: No rashes, no swelling. LYMPHATICS: No peripheral lymphadenopathy MUSCULOSKELETAL: left knee with neutral alignment, no edema/erythema/ecchymosis/effusion, ROM 0-100, stable with varus/valgus stressing, no focal tenderness; hip ROM with guarding vs limitation EXTREMITIES: No cyanosis or clubbing BACK: deferred GENITOURINARY: deferred Vital Sign (Last 24 Hours) 06/28/24 08:00 Temp 98.2 Pulse 75 Resp 18 B/P (MAP) 139/78 Pulse Ox 98 O2 Delivery Room Air* O2 Flow Rate 0 FiO2 21 Intake & Output (last 24hrs) 06/27/24 06/27/24 06/28/24 15:00 23:00 07:00 Intake Total 0 ml Balance 0 ml LABS: Laboratory: Test 1/26/25 11:32 06/28/24 06:33 06/28/24 01:03 06/27/24 16:09 Range/Units Whole Blood Glucose 110 70-110 MG/DL White Blood Count 9.2 4.8-10.8 K/uL Red Blood Count 4.26 L 4.50-6.20 MIL/uL Hemoglobin 13.5 L 14.0-18.0 g/dL Hematocrit 36.7 L 42-54 % Mean Corpuscular Volume 86.2 79-99 fL Mean Corpuscular Hemoglobin 31.7 27.0-33.0 pg Mean Corpuscular Hemoglobin Concent 36.8 H 32.0-36.0 g/dL Red Cell Distribution Width 13.4 11.0-15.5 % Platelet Count 171 130-400 K/uL Mean Platelet Volume 9.4 7.5-10.5 fL Immature Granulocyte % (Auto) 0.3 0-1 % Neutrophils (%) (Auto) 80.2 H 40.0-77.0 % Lymphocytes (%) (Auto) 12.9 L 21.0-51.0 % Monocytes (%) (Auto) 5.9 3.0-13.0 % Eosinophils (%) (Auto) 0.3 0.0-8.0 % Basophils (%) (Auto) 0.4 0.0-5.0 % Neutrophils # (Auto) 7.3 1.8-7.7 K/uL Lymphocytes # (Auto) 1.2 1.0-4.8 K/uL Monocytes # (Auto) 0.5 0.1-1.0 K/uL Eosinophils # (Auto) 0.03 0.00-0.70 K/uL Basophils # (Auto) 0.04 0.00-0.20 K/uL Absolute Immature Granulocyte (auto 0.03 0-1 K/uL Nucleated Red Blood Cells 0.0 0.0-0.19 % Total Creatine Kinase 330 #H 21-232 U/L Troponin I High Sensitivity 799.0 *H 4-75 ng/L Sodium Level 139 136-145 mmol/L Potassium Level 3.0 *L 3.5-5.1 mmol/L Chloride Level 101 101-111 mmol/L Carbon Dioxide Level 29 21-32 mmol/L Blood Urea Nitrogen 14 7-18 mg/dL Creatinine 1.1 0.5-1.3 mg/dL Glomerular Filtration Rate Calc 68 >90 mL/min Random Glucose 140 H 70-105 mg/dL Total Calcium 8.2 L 8.5-10.1 mg/dL Magnesium Level 1.90 1.80-2.40 mg/dL Hemoglobin A1c 6.4 H 4.0-6.0 % Estimated Average Glucose (eAG) 137 H 70-126 mg/dL Total Bilirubin 1.2 H 0.2-1.0 mg/dL Direct Bilirubin 0.2 0.0-0.3 mg/dL Aspartate Amino Transf (AST/SGOT) 38 H 10-37 U/L Alanine Aminotransferase (ALT/SGPT) 27 12-78 U/L Alkaline Phosphatase 78 50-136 U/L Ammonia 13 11-32 umol/L C-Reactive Protein, Quantitative 0.70 0.5-3.0 mg/L Total Protein 6.2 6.0-8.3 g/dL Albumin 3.4 L 3.5-5.0 g/dL Procalcitonin < 0.05 L 0.05-0.5 ng/mL Thyroid Stimulating Hormone (TSH) 0.77 0.36-3.74 uIU/mL Test 06/27/24 14:30 06/27/24 13:43 Range/Units Urine Color LIGHT-YELLOW YELLOW Urine Appearance CLEAR CLEAR Urine pH 5.5 5.0-8.0 Urine Specific [place] 1.014 1.001-1.031 Urine Protein 70 H NEGATIVE mg/dL Urine Glucose (UA) >=1000 H NEGATIVE mg/dL Urine Ketones 60 H NEGATIVE mg/dL Urine Occult Blood MODERATE H NEGATIVE Urine Nitrate NEGATIVE NEGATIVE Urine Bilirubin NEGATIVE NEGATIVE mg/dL Urine Urobilinogen 0.2 0.2-1.0 mg/dL Urine Leukocyte Esterase NEGATIVE NEGATIVE Jose/uL Urine RBC 6-10 H 0-1 /HPF Urine WBC 2-5 H 0-1 /HPF Urine Bacteria None None Seen /HPF White Cell Morphology Comment See comments Red Blood Cell Morphology ANISO 1+ B-Type Natriuretic Peptide 300 H 0-100 pg/mL DIAGNOSTICS / RADIOLOGY: bilateral knee x-rays with left knee bipartite patella and mild joint space narrowing in bilateral knees more significant along the medial side - but still mild AP pelvis with significant artherosclerotic disease seen, hips with maintain joint space in the superior WB portion of the articulation; incidentally seen portion of lumbar spine with signs of ankylosing spondylitis ASSESSMENT: 79 yo M with left knee bipartite patella and 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
--- NOTE | 2024-06-28 12:00 | NUR ---
SPEECH, LANGUAGE, COGNITIVE EVALUATION COMPLETED. NO FACIAL ASYMMETRY NOTED. SPEECH INTELLIGIBILITY AT 80%. RECEPTIVE AND EXPRESSIVE LANGUAGE WFL. ABLE TO ENGAGE IN CONVERSATION INDEPENDENTLY. AAOX1. CONFUSION NOTED BUT HX OF DEMENTIA NOTED IN CHART. UNKNOWN PLOF KNOWN AT THIS TIME NO FAMILY AT BEDSIDE TO VERIFY. AUTOMATION LEAD reviewed results and recommendations with patient and nurse. Speech therapy not warranted at this time. All questions answered. Addendum: 06/28/24 at 1453 by AKBAR JUARES Amended: Links added.
--- NOTE | 2024-06-28 14:25 | PN ---
CARDIOLOGY Reason for consult: Elevated troponin HPI/story at presentation: This is a pleasant 79-year-old male with past medical history significant for advanced dementia presents with a fall and found to have rhabdomyolysis. Sitting on patient elevated troponin level, cardiology was consulted for further evaluation management Unable to get history from patient given advanced dementia Subjective: 06/27/2024 sedated 06/28/2024 AMS Past medical history: See below Allergies, Meds See chart Review of systems not obtained Vitals see chart PHYSICAL EXAMINATION GENERAL: LETHARGUC 06/27/2024 HEENT: Nonicteric sclerae, non traumatic HEART: Regular rate and rhythm with no murmurs LUNGS: Clear to auscultation bilaterally ABDOMEN: No acute issues, non tender GENITAL, RECTAL: deferred SKIN: No rash NEUROLOGIC: LETHARGUC 06/27/2024 EXTREMITIES: No edema ASSESSMENT ALTERED MENTAL STATUS On sedation, 06/27/2024 In the setting of advanced Alzheimer's dementia Significant baseline debility ELEVATED TROPONIN In the setting rhabdomyolysis, 06/2024 Presented with a fall Peak troponin greater than 900 Elevated creatinine kinase at presentation HYPERTENSION, HYPERLIPIDEMIA CORE MEASURES Pending OTHER MEDICAL PROBLEMS History of urinary tract infection History of blindness History of appendectomy Left patella fracture versus bipartite left patella PLAN 06/27/2024 lethargic today after sedation. No active cardiac complaints noted prior to presentation. History. Troponin elevation thought to be type II in the setting of rhabdomyolysis. Even if patient did have possible ACS in the differential, and plans dementia, not the best candidate for ischemic evaluation. Will reevaluate after echocardiogram is complete. Seen and examined 06/27/2024 at around 8 PM 06/28/2024 Reviewed echocardiogram, has not been prelimed yet, patient does have no active chest pain. Mild wall motion changes noted in the distal anteroseptal apical shields, an echocardiogram completed today. Discussed extensively with the at bedside about plan of action. Discussed both approaches of aggressive care with cardiac catheterization PCI as indicated etc. versus conservative management with medical therapy given patient's advanced age, risk of procedure and need for antithrombotics post procedure, possible issues with cooperation during cardiac catheterization etc. and after extensive discussion, family agreed not to proceed with any invasive cardiovascular evaluation at this time and to just continue medical therapy. ATTESTATION I was involved substantially in the care of this patient Number and complexity of problems addressed: 1 acute illness with systemic features Amount and or complexity of data Review of prior external note(s) from each unique source: 2+ Ordering of each unique test : 0 Review of the result(s) of each unique test: 2+ Assessment requiring an independent historian(s): No Independent interpretation of test performed by another MD/QHCP/appropriate source (not separately reported) : No Discussion of management or test interpretation with external MD/QHCP/appropriate source (not separately reported) : No Risk status (cardiac, billing related):Moderate Vitals/Labs Vital Signs Date Time Temp Pulse Resp B/P (MAP) Pulse Ox O2 Delivery O2 Flow Rate FiO2 06/28/24 12:00 98.2 78 18 132/67 96 Room Air 06/28/24 08:00 0 21 Laboratory Tests 06/28/24 01:03 06/28/24 06:33 Medications Current Medications Lorazepam 2 mg ONCE ONCE IVP Last administered on 06/27/24 15:32; Start 06/27/24 at 15:30; Stop 06/27/24 at 15:31; Status DC Sodium Chloride 1,000 ml @ 0 mls/hr ONCE ONCE IV Last administered on 06/27/24at 15:32; Start 06/27/24 at 15:30; Stop 06/27/24 at 15:31; Status DC Lactated Ringer's 1,000 ml @ 80 mls/hr [id number] IV Last administered on 06/27/24at 18:08; Start 06/27/24 at 16:00; Stop 07/27/24 at 15:59 Acetaminophen 500 mg Q6H PRN PO Last administered on 06/28/24at 02:56; Start 06/27/24 at 16:00; Stop 07/27/24 at 15:59 Thiamine HCl 100 mg Q24H IVP Last administered on 06/27/24at 18:08; Start 06/27/24 at 16:00; Stop 07/27/24 at 15:59 Ceftriaxone Sodium 1 gm Q12H IVPB Last administered on 06/28/24at 06:33; Start 06/27/24 at 16:30; Stop 07/07/24 at 16:29 Pantoprazole Sodium 40 mg Q24H IVP Last administered on 06/27/24at 18:07; Start 06/27/24 at 16:30; Stop 07/27/24 at 16:29 Potassium Chloride 100 ml @ 100 mls/hr AD PRN IV Last administered on 06/28/24at 02:40; Start 06/27/24 at 16:30; Stop 07/27/24 at 16:29 Potassium Chloride 20 meq AD PRN PO; Start 06/27/24 at 16:30; Stop 07/27/24 at 16:29 Potassium Chloride 20 meq AD PRN PO; Start 06/27/24 at 16:30; Stop 07/27/24 at 16:29 Magnesium Sulfate 50 ml @ 0 mls/hr PROTOCOL IV Last administered on 06/27/24at 19:59; Start 06/27/24 at 16:30; Stop 06/27/24 at 20:24; Status DC Aspirin 81 mg DAILY PO; Start 06/28/24 at 09:00; Stop 07/28/24 at 08:59 Losartan Potassium 25 mg DAILY PO; Start 06/28/24 at 09:00; Stop 07/28/24 at 08:59 Citalopram Hydrobromide 20 mg DAILY PO; Start 06/28/24 at 09:00; Stop 07/28/24 at 08:59 Magnesium Sulfate 50 ml @ 0 mls/hr PROTOCOL IV; Start 06/27/24 at 20:30; Stop 07/27/24 at 20:29 Aspirin 81 mg ONCE ONCE PO Last administered on 06/27/24at 20:29; Start 06/27/24 at 20:30; Stop 06/27/24 at 20:31; Status DC Lorazepam 0.5 mg Q12H PRN IVP; Start 06/27/24 at 20:30; Stop 07/04/24 at 20:29 Hydralazine HCl 10 mg Q6H PRN IV; Start 06/28/24 at 11:00; Stop 07/28/24 at 10:59 CATRACHITA WEBER MD Jun 28, 2024 14:25
--- NOTE | 2024-06-28 14:27 | NUR ---
DC CM MET WITH PT CURRENTLY CONFUSED, NO FAMILY AT BEDSIDE. CALLED ON FACE SHEET, NO ANSWER. CALLED SON ON FACE SHEET, SPOKE TO CHRISTY CAROLINE ASSESSMENT DONE. PT IS ASSIST WITH ADL'S PRIOR TO ADMISSION, LIVES AT HOME WITH HIS ROBERTO CARLOS. PATIENT HAS A WALKER, WHEELCHAIR, SHOWER CHAIR, BEDSIDE COMMODE, GLUCOMER, TAKES INSULIN AND PO MED FOR DM. DENIES ANY OTHER EQUIPMENT/SERVICES. FEELS SAFE TO GO BACK HOME, AND SON ABLE TO ASSIST WITH TRANSPORTATION AND NEEDS NECESSARY. DCP HOME VS SNF. CM TO CONTINUE TO FOLLOW UP. Addendum: 06/28/24 at 1429 by ALEJANDRA GREGORY LVN Amended: Links added.
--- NOTE | 2024-06-28 19:20 | CONS ---
CONSULTATION NOTE Date of Service: Jun 28, 2024 Reason for Consultation: Evaluation of visual hallucinations Requesting Physician: Hospitalist HISTORY OF PRESENT ILLNESS: This is a 79 years old right-handed gentleman who has a past medical history remarkable for recurrent UTIs and Alzheimer's dementia who was admitted for evaluation and management of acute confusional state and agitation in association with visual hallucinations. The patient was admitted yesterday June 27, 2024 after the patient presented with worsening visual hallucinations agitation and confusional state. Of note the patient has an advanced Alzheimer's dementia and per admission note he was previously diagnosed with psychosis for which he was taking Seroquel. The patient does also have bilateral visual loss. He has been less aggressive for the past 24 hours now the patient is awake alert oriented x2 and following simple commands. The patient does states having visual hallucinations but he knows that they are not real he is not able to provide examples at this time. According to the nurses the patient has not been agitated aggressive or confused lately. Continues having short-term memory loss. Laboratory workup was unremarkable. REVIEW OF SYSTEMS CONSTITUTIONAL: Denies fever, chills, or fatigue. HEAD/FACE: No signs of trauma. EENT: Denies eye pain, blurred vision, double vision, or light sensitivity. RESPIRATORY: Denies shortness of breath, cough, wheezing CARDIOVASCULAR: Denies chest pain, palpitation, syncope GASTROINTESTINAL/ABDOMINAL: Denies abdominal pain, constipation, diarrhea, nausea or vomiting GENITOURINARY: Denies dysuria or hematuria. MUSCULOSKELETAL: Reports joint pain, denies tenderness, or trauma. INTEGUMENTARY: Denies rash or itchiness NEUROLOGICAL/PSYCH: Denies anxiety, depression, heat or cold intolerance. PAST MEDICAL HISTORY: Recurrent UTIs Alzheimer's dementia PAST SURGICAL HISTORY: Noncontributory PAST SOCIAL HISTORY: No tobacco alcohol recreational drug abuse FAMILY HISTORY: No family history of stroke or seizures Coded Allergies: No Known Allergies (Unverified Allergy, Mild, 03/12/20) PHYSICAL EXAM Mental status: The patient is alert, attentive, and oriented to person and place not to time. Short-term memory loss Cranial nerves: CN II: Vision loss bilaterally CN III, IV, : At primary gaze, there is no eye deviation. CN V: Facial sensation is intact to pinprick in all 3 divisions bilaterally. Corneal responses are intact. CN VII: Face is symmetric with normal eye closure and smile. CN VIII: Hearing is normal to rubbing fingers CN IX, X: Palate elevates symmetrically. Phonation is normal. CN XI: Head turning and shoulder shrug are intact CN XII: Tongue is midline with normal movements and no atrophy. Motor: There is no pronator drift of out-stretched arms. Muscle bulk and tone are normal. Strength is full bilaterally. Reflexes: Reflexes are 2+ and symmetric at the biceps, triceps, knees, and ankles. Plantar responses are flexor. Sensory: Light touch, pinprick, position sense, and vibration sense are intact in fingers and toes. Coordination: Rapid alternating movements and fine finger movements are intact. There is no dysmetria on [id number] and [id number]. There are no abnormal or extraneous movements. Romberg is absent. Gait/Stance: Not evaluated Vital Sign (Last 24 Hours) 06/28/24 06/28/24 08:00 12:00 Temp 98.2 Pulse 78 Resp 18 B/P (MAP) 132/67 Pulse Ox 96 O2 Delivery Room Air O2 Flow Rate 0 FiO2 21 Intake & Output (last 24hrs) 06/27/24 06/27/24 06/28/24 15:00 23:00 07:00 Intake Total 0 ml Balance 0 ml LABS: Laboratory: Test 06/28/24 18:58 06/28/24 06:33 06/28/24 01:03 06/27/24 16:09 Range/Units Whole Blood Glucose 99 70-110 MG/DL White Blood Count 9.2 4.8-10.8 K/uL Red Blood Count 4.26 L 4.50-6.20 MIL/uL Hemoglobin 13.5 L 14.0-18.0 g/dL Hematocrit 36.7 L 42-54 % Mean Corpuscular Volume 86.2 79-99 fL Mean Corpuscular Hemoglobin 31.7 27.0-33.0 pg Mean Corpuscular Hemoglobin Concent 36.8 H 32.0-36.0 g/dL Red Cell Distribution Width 13.4 11.0-15.5 % Platelet Count 171 130-400 K/uL Mean Platelet Volume 9.4 7.5-10.5 fL Immature Granulocyte % (Auto) 0.3 0-1 % Neutrophils (%) (Auto) 80.2 H 40.0-77.0 % Lymphocytes (%) (Auto) 12.9 L 21.0-51.0 % Monocytes (%) (Auto) 5.9 3.0-13.0 % Eosinophils (%) (Auto) 0.3 0.0-8.0 % Basophils (%) (Auto) 0.4 0.0-5.0 % Neutrophils # (Auto) 7.3 1.8-7.7 K/uL Lymphocytes # (Auto) 1.2 1.0-4.8 K/uL Monocytes # (Auto) 0.5 0.1-1.0 K/uL Eosinophils # (Auto) 0.03 0.00-0.70 K/uL Basophils # (Auto) 0.04 0.00-0.20 K/uL Absolute Immature Granulocyte (auto 0.03 0-1 K/uL Nucleated Red Blood Cells 0.0 0.0-0.19 % Total Creatine Kinase 330 #H 21-232 U/L Troponin I High Sensitivity 799.0 *H 4-75 ng/L Sodium Level 139 136-145 mmol/L Potassium Level 3.0 *L 3.5-5.1 mmol/L Chloride Level 101 101-111 mmol/L Carbon Dioxide Level 29 21-32 mmol/L Blood Urea Nitrogen 14 7-18 mg/dL Creatinine 1.1 0.5-1.3 mg/dL Glomerular Filtration Rate Calc 68 >90 mL/min Random Glucose 140 H 70-105 mg/dL Total Calcium 8.2 L 8.5-10.1 mg/dL Magnesium Level 1.90 1.80-2.40 mg/dL Hemoglobin A1c 6.4 H 4.0-6.0 % Estimated Average Glucose (eAG) 137 H 70-126 mg/dL Total Bilirubin 1.2 H 0.2-1.0 mg/dL Direct Bilirubin 0.2 0.0-0.3 mg/dL Aspartate Amino Transf (AST/SGOT) 38 H 10-37 U/L Alanine Aminotransferase (ALT/SGPT) 27 12-78 U/L Alkaline Phosphatase 78 50-136 U/L Ammonia 13 11-32 umol/L C-Reactive Protein, Quantitative 0.70 0.5-3.0 mg/L Total Protein 6.2 6.0-8.3 g/dL Albumin 3.4 L 3.5-5.0 g/dL Procalcitonin < 0.05 L 0.05-0.5 ng/mL Thyroid Stimulating Hormone (TSH) 0.77 0.36-3.74 uIU/mL Test 06/27/24 14:30 06/27/24 13:43 Range/Units Urine Color LIGHT-YELLOW YELLOW Urine Appearance CLEAR CLEAR Urine pH 5.5 5.0-8.0 Urine Specific [place] 1.014 1.001-1.031 Urine Protein 70 H NEGATIVE mg/dL Urine Glucose (UA) >=1000 H NEGATIVE mg/dL Urine Ketones 60 H NEGATIVE mg/dL Urine Occult Blood MODERATE H NEGATIVE Urine Nitrate NEGATIVE NEGATIVE Urine Bilirubin NEGATIVE NEGATIVE mg/dL Urine Urobilinogen 0.2 0.2-1.0 mg/dL Urine Leukocyte Esterase NEGATIVE NEGATIVE Jose/uL Urine RBC 6-10 H 0-1 /HPF Urine WBC 2-5 H 0-1 /HPF Urine Bacteria None None Seen /HPF White Cell Morphology Comment See comments Red Blood Cell Morphology ANISO 1+ B-Type Natriuretic Peptide 300 H 0-100 pg/mL DIAGNOSTICS / RADIOLOGY: bilateral knee x-rays with left knee bipartite patella and mild joint space narrowing in bilateral knees more significant along the medial side - but still mild AP pelvis with significant artherosclerotic disease seen, hips with maintain joint space in the superior WB portion of the articulation; incidentally seen portion of lumbar spine with signs of ankylosing spondylitis CT scan of the head without contrast: Generalized cortical atrophy ASSESSMENT / PLAN: 1).- Advanced Alzheimer's dementia - per history and physical examination it is likely this patient has an advanced Alzheimer's dementia with short-term memory loss. The patient is also having psychosis which could be part of the dementia by itself or secondary to underlying metabolic condition. The patient has been stable since admission. 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 Unknown types of visual hallucinations at this time. The patient will benefit from an antipsychotic medication Seroquel 25 mg p.o. at bedtime. Follow up with Dr. Thompson psychiatrist as an outpatient. Thank you for your consultation I will sign off. AKOSUA CHILDERS MD Jun 28, 2024 19:20
[2024-06-28] MEDS: queTIAPine fuMARate 25 MG TAB PO SCH (20:31)
--- NOTE | 2024-06-28 21:27 | HMCSR ---
APPROVED REPORT EXAM: Two-dimensional and M-mode echocardiogram with Doppler and color Doppler. INDICATION ICD: elevated troponin 2D Dimensions RVDd4.0 cmLVEF(%)67.4 (>50%)LVED Vol(simp.)63.7 mL IVSd0.8 (0.7-1.1cm)FS(%)37 %LVES Vol(simp.)23.1 mL LVDd3.8 (3.8-5.6cm)LA (2D)4.1 (1.6-4.0cm)LVEF(%, simp.)64 % PWd0.7 (0.7-1.1cm)Ao Root(2D)3.3 (2.0-3.7cm)LA ESV INDEX (4CH)19.40 mL/m2 IVSs0.8 cmLVOT diam2.3 (1.8-2.4cm)LA ESV INDEX (2CH)28.60 mL/m2 LVDs2.4 (2.5-4.0cm)LA ESV INDEX (BP)22.20 mL/m2 PWs1.3 cm Deformation Strain Apical 417.0 % Apical 215.0 % Apical 311.0 % Global Uebjdu58.0 % M-Mode Dimensions EPSS1.1 cm LA (MM)3.9 (1.6-4.0cm) Ao Root(MM)3.1 (2.0-3.7cm) Aortic Valve AoV VTI0.3 mAo Mean GR3.0 mmHgLVOT VTI0.21 m MAEGAN (VMAX)3.2 cm2AVA (VTI) 3.2 cm2 Mitral Valve MV E Vmax78.6 cm/sDECEL Bppf748 ms MV A Vmax92.2 cm/sP 1/2 T78 ms E/A ratio0.9MVA (PHT)2.8 cm2 MR Max PG38 mmHg TDI E/E' Lpgszt50.4E/E' Lateral9.7 Medial E' Peak V4.80 cm/sLateral E' Peak V8.10 cm/s Left Ventricle The left ventricle is normal size. Mild anteroseptal and apical hypokinesis There is normal left vent ricular wall thickness. LVEF is 50-55%. Indeterminate diastolic dysfunction. Right Ventricle The right ventricle is normal size. The right ventricular systolic function is normal. Atria The left atrium size is normal. The right atrium size is normal. Aortic Valve The aortic valve is normal in structure and function. No aortic regurgitation is present. There is no aortic valvular stenosis. Mitral Valve The mitral valve is normal in structure. There is no mitral valve regurgitation noted. There is no mi tral valve stenosis. Tricuspid Valve The tricuspid valve is normal in structure. There is no tricuspid valve regurgitation noted. Pulmonic Valve The pulmonary valve is normal in structure. There is no pulmonic valvular regurgitation. Great Vessels The aortic root is normal in size. The IVC is normal in size and collapses >50% with inspiration. Pericardium There is no pericardial effusion. Other Information Technically limited study due to body habitus. Conclusion LVEF is 50-55%. Mild anteroseptal and apical hypokinesis There is normal left ventricular wall thickness. The left ventricle is normal size. Indeterminate diastolic dysfunction. There is no pericardial effusion. Study quality was adequate
[2024-06-29] VITALS (10 sets, daily range): BP systolic 97–185; BP diastolic 54–88; PULSE 85–102; RESP 16–19; TEMP 97.8–98.7; O2SAT 97–98
[2024-06-29] MEDS: hydrALAZine 20MG/ML VIAL IV PRN (00:18)
[2024-06-29 03:58] LABS: BASOPHILS # (AUTO) 0.05 K/uL (0.00-0.20); BASOPHILS % (AUTO) 0.6 % (0.0-5.0); EOSINOPHILS # (AUTO) 0.04 K/uL (0.00-0.70); EOSINOPHILS % (AUTO) 0.5 % (0.0-8.0); HEMATOCRIT 40.9 % (42-54); IMMATURE GRANULOCYTE ABSOLUTE 0.03 K/uL (0-1); LYMPHOCYTES # (AUTO) 1.5 K/uL (1.0-4.8); LYMPHOCYTES % (AUTO) 19.2 % (21.0-51.0); MEAN CORPUSCULAR HEMOGLOBIN 31.2 pg (27.0-33.0); MEAN CORPUSCULAR HGB CONC 36.4 g/dL (32.0-36.0); MEAN CORPUSCULAR VOLUME 85.6 fL (79-99); MONOCYTES # (AUTO) 0.5 K/uL (0.1-1.0); MONOCYTES % (AUTO) 5.9 % (3.0-13.0); NEUTROPHILS # (AUTO) 5.8 K/uL (1.8-7.7); NEUTROPHILS % (AUTO) 73.4 % (40.0-77.0); PLATELET COUNT (AUTO) 192 K/uL (130-400); RED BLOOD CELL COUNT(AUTO) 4.78 MIL/uL (4.50-6.20); RED CELL DISTRIBUTION WIDTH 13.2 % (11.0-15.5); WHITE BLOOD COUNT (AUTO) 7.9 K/uL (4.8-10.8)
[2024-06-29] MEDS: LORazepam 2 MG/ML 1 ML VIAL IVP PRN (04:13)
--- NOTE | 2024-06-29 04:14 | NUR ---
AGITATION/CONFUSION PATIENT NOTED SWINGING FISTS AT CEILING AND THROWING LEGS OFF BED, PULLING IV TUBING. PATIENT STATING DOGS ARE TRYING TO BITE HIM. PATIENT NOTED TAKING OFF TELEMETRY AND STATING STAFF TRYING TO STEAL TELEMETRY WHEN STAFF ATTEMPTS TO REAPPLY TELEMETRY, PATIENT GRABS AND SQUEEZES STAFF HANDS AND SWINGS FISTS AT STAFF WHEN PROVIDING CARE. UNABLE TO REORIENT PATIENT, CONTINUES WITH VIVID HALLUCINATIONS OF DOGS RUNNING AFTER HIM TO BITE HIM.
[2024-06-29] MEDS: PoTASSium chloRIDE 20MEQ ER 20 MEQ ERTAB PO ONE (12:49)
--- NOTE | 2024-06-29 12:53 | PN ---
[facility] PROGRESS NOTE Date of Service: Jun 29, 2024 Time of Service: 12:48 SUBJECTIVE: [ Patient is a 79-year-old male who is awake and alert oriented to person and place but not to time. He does have a history of advanced Alzheimer's dementia. He was admitted with a history of a fall and rhabdomyolysis and elevated troponin. He is in no acute distress at the present time he denies chest pain or shortness for breath. 06/29 patient is currently seen in 405, he is on one-to-one supervision. Apparently patient is removing his IV, already removed 3 times in the past24 hours. At this time we will adjust antianxiety medication with Ativan 0.5 mg every 6 hours. We will continue to monitor closely. Continue with IV fluids. We will request physical therapy. Possible placement.] REVIEW OF SYSTEMS Ten points were reviewed and negative PHYSICAL EXAM GENERAL APPEARANCE: The patient is awake, alert, and oriented, in no acute cardiopulmonary distress. NEUROLOGICAL: Cranial nerves II-XII grossly intact. Motor is 5/5 in bilateral upper and lower extremities proximal to distal. No sensory deficits. HEENT: Face is symmetric. Pupils are equal and reactive. Extraocular movements are intact. NECK: Supple. No JVD. No thyromegaly. No submental, submandibular, pre- /postauricular, occipital or supraclavicular lymphadenopathy. CHEST: Normal chest expansion. No Telemetry. LUNGS: Absence of any rales, rhonchi or any wheezing. CARDIOVASCULAR: Regular. S1 and S2 normal. No appreciable rubs, murmurs or gallops. ABDOMEN: Soft, nontender, and nondistended. There is no rebound, voluntary guarding, or rigidity. : Deferred. No Palmer. EXTREMITIES: Non-edematous and not cyanotic. No clubbing. Good capillary refill. SKIN: No skin breakdown. Vital Signs (last 8hr) Date Time Temp Pulse Resp B/P (MAP) Pulse Ox O2 Delivery O2 Flow Rate FiO2 06/29/24 12:00 98.1 91 18 122/66 98 Room Air 06/29/24 10:25 102 97/70 06/29/24 09:08 97 18 185/59 06/29/24 08:00 98.8 98 16 178/88 97 Room Air LABS: Laboratory: Test 06/29/24 11:11 06/29/24 03:29 06/28/24 06:33 06/28/24 01:03 Range/Units Whole Blood Glucose 122 H 70-110 MG/DL White Blood Count 7.9 4.8-10.8 K/uL Red Blood Count 4.78 4.50-6.20 MIL/uL Hemoglobin 14.9 14.0-18.0 g/dL Hematocrit 40.9 L 42-54 % Mean Corpuscular Volume 85.6 79-99 fL Mean Corpuscular Hemoglobin 31.2 27.0-33.0 pg Mean Corpuscular Hemoglobin Concent 36.4 H 32.0-36.0 g/dL Red Cell Distribution Width 13.2 11.0-15.5 % Platelet Count 192 130-400 K/uL Mean Platelet Volume 9.5 7.5-10.5 fL Immature Granulocyte % (Auto) 0.4 0-1 % Neutrophils (%) (Auto) 73.4 40.0-77.0 % Lymphocytes (%) (Auto) 19.2 L 21.0-51.0 % Monocytes (%) (Auto) 5.9 3.0-13.0 % Eosinophils (%) (Auto) 0.5 0.0-8.0 % Basophils (%) (Auto) 0.6 0.0-5.0 % Neutrophils # (Auto) 5.8 1.8-7.7 K/uL Lymphocytes # (Auto) 1.5 1.0-4.8 K/uL Monocytes # (Auto) 0.5 0.1-1.0 K/uL Eosinophils # (Auto) 0.04 0.00-0.70 K/uL Basophils # (Auto) 0.05 0.00-0.20 K/uL Absolute Immature Granulocyte (auto 0.03 0-1 K/uL Nucleated Red Blood Cells 0.0 0.0-0.19 % Sodium Level 139 136-145 mmol/L Potassium Level 3.0 *L 3.5-5.1 mmol/L Chloride Level 101 101-111 mmol/L Carbon Dioxide Level 22 21-32 mmol/L Blood Urea Nitrogen 14 7-18 mg/dL Creatinine 1.0 0.5-1.3 mg/dL Glomerular Filtration Rate Calc 77 >90 mL/min Random Glucose 79 70-105 mg/dL Total Calcium 8.7 8.5-10.1 mg/dL Total Creatine Kinase 330 #H 21-232 U/L Troponin I High Sensitivity 799.0 *H 4-75 ng/L Magnesium Level 1.90 1.80-2.40 mg/dL Test 06/27/24 16:09 06/27/24 14:30 06/27/24 13:43 Range/Units Hemoglobin A1c 6.4 H 4.0-6.0 % Estimated Average Glucose (eAG) 137 H 70-126 mg/dL Total Bilirubin 1.2 H 0.2-1.0 mg/dL Direct Bilirubin 0.2 0.0-0.3 mg/dL Aspartate Amino Transf (AST/SGOT) 38 H 10-37 U/L Alanine Aminotransferase (ALT/SGPT) 27 12-78 U/L Alkaline Phosphatase 78 50-136 U/L Ammonia 13 11-32 umol/L C-Reactive Protein, Quantitative 0.70 0.5-3.0 mg/L Total Protein 6.2 6.0-8.3 g/dL Albumin 3.4 L 3.5-5.0 g/dL Procalcitonin < 0.05 L 0.05-0.5 ng/mL Thyroid Stimulating Hormone (TSH) 0.77 0.36-3.74 uIU/mL Urine Color LIGHT-YELLOW YELLOW Urine Appearance CLEAR CLEAR Urine pH 5.5 5.0-8.0 Urine Specific Eunice 1.014 1.001-1.031 Urine Protein 70 H NEGATIVE mg/dL Urine Glucose (UA) >=1000 H NEGATIVE mg/dL Urine Ketones 60 H NEGATIVE mg/dL Urine Occult Blood MODERATE H NEGATIVE Urine Nitrate NEGATIVE NEGATIVE Urine Bilirubin NEGATIVE NEGATIVE mg/dL Urine Urobilinogen 0.2 0.2-1.0 mg/dL Urine Leukocyte Esterase NEGATIVE NEGATIVE Jose/uL Urine RBC 6-10 H 0-1 /HPF Urine WBC 2-5 H 0-1 /HPF Urine Bacteria None None Seen /HPF White Cell Morphology Comment See comments Red Blood Cell Morphology ANISO 1+ B-Type Natriuretic Peptide 300 H 0-100 pg/mL Current Medications Medications (Trade) Dose Ordered Sig/Jaxon Route PRN Reason Start Time Stop Time Status Last Admin Dose Admin Acetaminophen (TYLenol 500MG TAB) 500 mg Q6H PRN PO MILD PAIN (1-3) 06/27/24 16:00 07/27/24 15:59 06/28/24 02:56 500 MG Aspirin (Aspirin 81mg Ec Tab) 81 mg DAILY PO 06/28/24 09:00 07/28/24 08:59 Ceftriaxone Sodium (ROCEphine 1G INJ) 1 gm Q12H IVPB 06/27/24 16:30 07/07/24 16:29 06/29/24 03:42 1 GM Citalopram Hydrobromide (CeleXA 20MG TAB) 20 mg DAILY PO 06/28/24 09:00 07/28/24 08:59 Hydralazine HCl (APRESOLine 20MG INJ) 10 mg Q6H PRN IV ADMINISTER FOR SBP > 170 06/28/24 11:00 07/28/24 10:59 06/29/24 09:08 10 MG Lactated Ringer's 1,000 ml @ 80 mls/hr [id number] IV 06/27/24 16:00 07/27/24 15:59 06/29/24 03:44 80 MLS/HR Lorazepam (AtiVAN) 0.5 mg Q12H PRN IVP ANXIETY/AGITATION 06/27/24 20:30 07/04/24 20:29 06/29/24 04:13 0.5 MG Losartan Potassium (CozAAR 25MG TAB) 25 mg DAILY PO 06/28/24 09:00 07/28/24 08:59 Magnesium Sulfate 50 ml @ 0 mls/hr PROTOCOL IV 06/27/24 16:30 06/27/24 20:24 DC 06/27/24 19:59 25 MLS/HR Magnesium Sulfate 50 ml @ 0 mls/hr PROTOCOL IV 06/27/24 20:30 07/27/24 20:29 Pantoprazole Sodium (PROTonix 40MG INJ) 40 mg Q24H IVP 06/27/24 16:30 07/27/24 16:29 06/28/24 17:04 40 MG Potassium Chloride 100 ml @ 100 mls/hr AD PRN IV POTASSIUM PROTOCOL 06/27/24 16:30 07/27/24 16:29 06/29/24 04:26 100 MLS/HR Potassium Chloride (K-Dur/Klor-Con 20meq) 20 meq AD PRN PO POTASSIUM PROTOCOL 06/27/24 16:30 07/27/24 16:29 Potassium Chloride (KCl 10% Elixir 20meq/15ml) 20 meq AD PRN PO POTASSIUM PROTOCOL 06/27/24 16:30 07/27/24 16:29 Quetiapine Fumarate (SEROquel 25 mg TAB) 25 mg HS PO 06/28/24 21:00 07/28/24 20:59 Thiamine HCl (Vitamin B-1) 100 mg Q24H IVP 06/27/24 16:00 07/27/24 15:59 06/28/24 17:04 100 MG DIAGNOSTICS / RADIOLOGY: [ ] ASSESSMENT: Acute delirium in the setting of advanced Alzheimer's dementia, POA Visual hallucinations, POA Insomnia, POA Recent history of fall, POA Debility/frailty, POA Elevated troponin, POA, rule out active ACS Rhabdomyolysis, POA Possible left patellar fracture versus bipartite left patella, POA History of UTI, POA History of type 2 diabetes mellitus, POA Hypertension, POA Hyperlipidemia, POA Blindness of bilateral eyes, POA Hypokalemia PLAN: Patient will be admitted to medical-surgical floor under telemetry monitoring Positive troponins through type 2 in the setting of rhabdomyolysis which is now resolved Patient continues to be confused, we will adjust Ativan 0.5 mg IV every 6 hours prn Urinalysis is remarkable, we will continue with IV antibiotics with [place] Dr. Borges spoke with Dr. Hill with Cardiology, 2D echo obtained showing LVEF of 50-55%. Continue aspirin 81 mg daily, Patient has advanced dementia, Dr. Hernandez started patient on Seroquel, appreciate his recommendations X-ray of the left knee showed possible fracture versus bipartite patella, di scussed with Dr. Boateng with Orthopedics for further evaluation Patient will continue with rest of the home medications All labs will be repeated in the morning Patient will benefit from palliative care, we will have social media content specialist follow this patient and case management to assist with discharge planning Currently under potassium coverage we will check a magnesium level in the a.m. as well No family member present at the bedside has requested full code for the patient, Case was seen and evaluated with Dr. Phillips, above plan was formulated ATTESTATION BY PHYSICIAN I have seen and examined the patient. I reviewed the documentation, medical decision making, and treatment plan as noted by the mid-level provider above. I agree with the findings and plan of care. NITA PHILLIPS MD, [facility] Jun 29, 2024 12:53
[2024-06-29] MEDS ORDERED: MAGNESIUM 2GM PREMIX 50ML 50 ML IV PRN (13:00)
[2024-06-29] MEDS ORDERED: PoTASSium chloRIDE 20MEQ ER 20 MEQ ERTAB PO PRN (13:00)
[2024-06-29] MEDS ORDERED: LORazepam 2 MG/ML 1 ML VIAL IVP PRN (13:00)
[2024-06-29] MEDS ORDERED: PoTASSium chl 10% ELIXIR 20MEQ 20 MEQ/15 ML UDCUP PO PRN (13:00)
[2024-06-29] MEDS ORDERED: PoTASSium chloRIDE 20MEQ/100ML 100 ML IV PRN (13:00)
--- NOTE | 2024-06-29 14:15 | NUR ---
MBSS COMPLETED. No aspirations; no penetrations. Recommend mechanical soft/chopped solids, thin liquids and pills crushed with pureed as tolerated. Compensatory strategies: 1. sit upright during oral intake 2. small bites/sips 3. slow oral intake 4. extra dry swallows DIAMOND SANDER reviewed results and recommendations with patient and 1:1 sitter/nurse. DIAMOND SANDER educated patient on risks and consequences of aspiration. Speech therapy not warranted at this time. All questions answered. Addendum: 06/29/[address] [facility] Amended: Links added.
--- NOTE | 2024-06-29 15:42 | HMCIMG ---
MODIFIED BARIUM SWALLOW W CINE REASON: ASPIRATION RISK FINDINGS: Fluoroscopic assistance was provided to the speech pathologist while performing examination. For findings and dietary recommendations, refer to speech pathologist's report. FLUORO TIME: 4.4 minutes IMPRESSION: Modified barium swallow as described.
[2024-06-29] MEDS: PoTASSium chl 10% ELIXIR 20MEQ 20 MEQ/15 ML UDCUP PO PRN (20:28)
--- NOTE | 2024-06-29 22:01 | PN ---
CARDIOLOGY Reason for consult: Elevated troponin HPI/story at presentation: This is a pleasant 79-year-old male with past medical history significant for advanced dementia presents with a fall and found to have rhabdomyolysis. Sitting on patient elevated troponin level, cardiology was consulted for further evaluation management Unable to get history from patient given advanced dementia Subjective: 06/27/2024 sedated 06/28/2024 AMS 06/29/2024 AMS Past medical history: See below Allergies, Meds See chart Review of systems not obtained Vitals see chart PHYSICAL EXAMINATION GENERAL: LETHARGUC 06/27/2024 HEENT: Nonicteric sclerae, non traumatic HEART: Regular rate and rhythm with no murmurs LUNGS: Clear to auscultation bilaterally ABDOMEN: No acute issues, non tender GENITAL, RECTAL: deferred SKIN: No rash NEUROLOGIC: LETHARGUC 06/27/2024 EXTREMITIES: No edema ASSESSMENT ALTERED MENTAL STATUS On sedation, 06/27/2024 In the setting of advanced Alzheimer's dementia Significant baseline debility ELEVATED TROPONIN In the setting rhabdomyolysis, 06/2024 Presented with a fall Peak troponin greater than 900 Elevated creatinine kinase at presentation HYPERTENSION, HYPERLIPIDEMIA CORE MEASURES Pending OTHER MEDICAL PROBLEMS History of urinary tract infection History of blindness History of appendectomy Left patella fracture versus bipartite left patella PLAN 06/27/2024 lethargic today after sedation. No active cardiac complaints noted prior to presentation. History. Troponin elevation thought to be type II in the setting of rhabdomyolysis. Even if patient did have possible ACS in the differential, and plans dementia, not the best candidate for ischemic evaluation. Will reevaluate after echocardiogram is complete. Seen and examined 06/27/2024 at around 8 PM 06/28/2024 Reviewed echocardiogram, has not been prelimed yet, patient does have no active chest pain. Mild wall motion changes noted in the distal anteroseptal apical shields, an echocardiogram completed today. Discussed extensively with the at bedside about plan of action. Discussed both approaches of aggressive care with cardiac catheterization PCI as indicated etc. versus conservative management with medical therapy given patient's advanced age, risk of procedure and need for antithrombotics post procedure, possible issues with cooperation during cardiac catheterization etc. and after extensive discussion, family agreed not to proceed with any invasive cardiovascular evaluation at this time and to just continue medical therapy. 06/29/2024 Mental status is poor, still fairly aggressive and trying to hurt staff. Per discussion with extensively yesterday, plan is for conservative management from a cardiac standpoint. Mental status issues. IVs have been pulled continuously. Psychiatry on board to address mental status. On hydralazine losartan aspirin labs are otherwise okay echocardiogram with borderline normal EF. Seen and examined 06/29/2024 at around 2100. ATTESTATION I was involved substantially in the care of this patient Number and complexity of problems addressed: 1 acute illness with systemic features Amount and or complexity of data Review of prior external note(s) from each unique source: 2+ Ordering of each unique test : 0 Review of the result(s) of each unique test: 2+ Assessment requiring an independent historian(s): No Independent interpretation of test performed by another MD/QHCP/appropriate source (not separately reported) : No Discussion of management or test interpretation with external MD/QHCP/appropriate source (not separately reported) : No Risk status (cardiac, billing related):Moderate Vitals/Labs Vital Signs Date Time Temp Pulse Resp B/P (MAP) Pulse Ox O2 Delivery O2 Flow Rate FiO2 06/29/24 19:24 98.4 88 18 140/54 97 Room Air 06/29/24 08:45 0 21 Laboratory Tests 06/29/24 03:29 Medications Current Medications Lorazepam 2 mg ONCE ONCE IVP Last administered on 06/27/24at 15:32; Start 06/27/24 at 15:30; Stop 06/27/24 at 15:31; Status DC Sodium Chloride 1,000 ml @ 0 mls/hr ONCE ONCE IV Last administered on 06/27/24at 15:32; Start 06/27/24 at 15:30; Stop 06/27/24 at 15:31; Status DC Lactated Ringer's 1,000 ml @ 80 mls/hr [id number] IV Last administered on 06/29/24at 18:04; Start 06/27/24 at 16:00; Stop 07/27/24 at 15:59 Acetaminophen 500 mg Q6H PRN PO Last administered on 06/28/24at 02:56; Start 06/27/24 at 16:00; Stop 07/27/24 at 15:59 Thiamine HCl 100 mg Q24H IVP Last administered on 06/29/24at 17:26; Start 06/27/24 at 16:00; Stop 07/27/24 at 15:59 Ceftriaxone Sodium 1 gm Q12H IVPB Last administered on 06/29/24at 17:26; Start 06/27/24 at 16:30; Stop 07/07/24 at 16:29 Pantoprazole Sodium 40 mg Q24H IVP Last administered on 06/29/24at 17:26; Start 06/27/24 at 16:30; Stop 07/27/24 at 16:29 Potassium Chloride 100 ml @ 100 mls/hr AD PRN IV Last administered on 06/29/24at 04:26; Start 06/27/24 at 16:30; Stop 07/27/24 at 16:29 Potassium Chloride 20 meq AD PRN PO Last administered on 06/29/24at 20:28; Start 06/27/24 at 16:30; Stop 07/27/24 at 16:29 Potassium Chloride 20 meq AD PRN PO; Start 06/27/24 at 16:30; Stop 07/27/24 at 16:29 Magnesium Sulfate 50 ml @ 0 mls/hr PROTOCOL IV Last administered on 06/27/24at 19:59; Start 06/27/24 at 16:30; Stop 06/27/24 at 20:24; Status DC Aspirin 81 mg DAILY PO; Start 06/28/24 at 09:00; Stop 07/28/24 at 08:59 Losartan Potassium 25 mg DAILY PO; Start 06/28/24 at 09:00; Stop 07/28/24 at 08:59 Citalopram Hydrobromide 20 mg DAILY PO; Start 06/28/24 at 09:00; Stop 07/28/24 at 08:59 Magnesium Sulfate 50 ml @ 0 mls/hr PROTOCOL IV; Start 06/27/24 at 20:30; Stop 07/27/24 at 20:29 Aspirin 81 mg ONCE ONCE PO Last administered on 06/27/24at 20:29; Start 06/27/24 at 20:30; Stop 06/27/24 at 20:31; Status DC Lorazepam 0.5 mg Q12H PRN IVP Last administered on 06/29/24at 04:13; Start 06/27/24 at 20:30; Stop 06/29/24 at 12:48; Status DC Hydralazine HCl 10 mg Q6H PRN IV Last administered on 06/29/24at 09:08; Start 06/28/24 at 11:00; Stop 07/28/24 at 10:59 Quetiapine Fumarate 25 mg HS PO Last administered on 06/29/24at 20:28; Start 06/28/24 at 21:00; Stop 07/28/24 at 20:59 Potassium Chloride 40 meq ONCE ONCE PO; Start 06/29/24 at 13:00; Stop 06/29/24 at 13:01; Status DC Potassium Chloride 100 ml @ 100 mls/hr AD PRN IV; Start 06/29/24 at 13:00; Stop 06/29/24 at 12:50; Status DC Potassium Chloride 20 meq AD PRN PO; Start 06/29/24 at 13:00; Stop 06/29/24 at 12:50; Status DC Potassium Chloride 20 meq AD PRN PO; Start 06/29/24 at 13:00; Stop 06/29/24 at 12:51; Status DC Magnesium Sulfate 50 ml @ 0 mls/hr PROTOCOL PRN IV; Start 06/29/24 at 13:00; Stop 06/29/24 at 12:51; Status DC Lorazepam 0.5 mg Q6H PRN IVP; Start 06/29/24 at 13:00; Stop 07/04/24 at 20:29 CATRACHITA WEBER MD Jun 29, 2024 22:01
[2024-06-30] VITALS (8 sets, daily range): BP systolic 112–169; BP diastolic 61–90; PULSE 79–94; RESP 17–20; TEMP 96.1–98.4; O2SAT 95–97
--- NOTE | 2024-06-30 02:56 | NUR ---
nursing pm note patient alert and oriented times person. plan of care discussed with him and he is having hallucinations that someone stole his care. Patient has no pain tonight. He swings his fists and kicks at us if we try to touch him. Sit[place]elo [place], at bedside. patient tries to remove his IV catheter. I secured it with coband and kerlix. He has slept about 1 hour tonight. He tried to get out of bed at 23:00 and at 02:00 am. Perez Collins, and I carefully readjusted him in bed. The patient grabs his groundwater monitoring technician and tries to throw it at us. After 02:00, he stopped having hallucinations and he was quiet, but aware. Door open, sitter at bedside, call light within reach, bed alarm on, 2 side rails up. will continue to monitor patient.
--- NOTE | 2024-06-30 04:27 | NUR ---
iv patient removed his IV catheter again. I placed a 22 gauge on his left upper arm. placed coband around it. will continue to monitor.
[2024-06-30 05:30] LABS: HEMATOCRIT 39.2 % (42-54); MEAN CORPUSCULAR HEMOGLOBIN 31.4 pg (27.0-33.0); MEAN CORPUSCULAR HGB CONC 36.2 g/dL (32.0-36.0); MEAN CORPUSCULAR VOLUME 86.7 fL (79-99); RED BLOOD CELL COUNT(AUTO) 4.52 MIL/uL (4.50-6.20); RED CELL DISTRIBUTION WIDTH 13.4 % (11.0-15.5); WHITE BLOOD COUNT (AUTO) 9.4 K/uL (4.8-10.8)
[2024-06-30 05:54] LABS: CREATININE 1.2 mg/dL (0.5-1.3); MAGNESIUM 1.9 mg/dL (1.80-2.40); POTASSIUM 3.3 mmol/L (3.5-5.1)
[2024-06-30] MEDS: MAGNESIUM 2GM PREMIX 50ML 50 ML IV SCH (06:22)
--- NOTE | 2024-06-30 10:30 | NUR ---
Order received and spoke to Zeny, patient's nurse. Patient is confused and combative. Attempted to work with patient however patient became very agitated. PT eval deferred today. PT team to follow.
--- NOTE | 2024-06-30 12:00 | PN ---
[facility] PROGRESS NOTE Date of Service: Jun 30, 2024 Time of Service: 11:50 SUBJECTIVE: [ Patient is a 79-year-old male who is awake and alert oriented to person and place but not to time. He does have a history of advanced Alzheimer's dementia. He was admitted with a history of a fall and rhabdomyolysis and elevated troponin. He is in no acute distress at the present time he denies chest pain or shortness for breath. 06/29 patient is currently seen in 405, he is on one-to-one supervision. Apparently patient is removing his IV, already removed 3 times in the past24 hours. At this time we will adjust antianxiety medication with Ativan 0.5 mg every 6 hours. We will continue to monitor closely. Continue with IV fluids. We will request physical therapy. Possible placement.] 06/30/2024 patient was evaluated in the room, he is lying in bed in no acute distress. Patient was confused at this time. Yesterday patient had issues with behavior and was started anti anxiety. We will request PT to evaluate and treat and Case Management evaluation for sniff to continue with IV antibiotics. He is afebrile. Labs reviewed. No family at bedside. REVIEW OF SYSTEMS Ten points were reviewed and negative PHYSICAL EXAM GENERAL APPEARANCE: The patient is awake, alert, and oriented, in no acute cardiopulmonary distress. NEUROLOGICAL: Cranial nerves II-XII grossly intact. Motor is 5/5 in bilateral upper and lower extremities proximal to distal. No sensory deficits. HEENT: Face is symmetric. Pupils are equal and reactive. Extraocular movements are intact. NECK: Supple. No JVD. No thyromegaly. No submental, submandibular, pre- /postauricular, occipital or supraclavicular lymphadenopathy. CHEST: Normal chest expansion. No Telemetry. LUNGS: Absence of any rales, rhonchi or any wheezing. CARDIOVASCULAR: Regular. S1 and S2 normal. No appreciable rubs, murmurs or ga llops. ABDOMEN: Soft, nontender, and nondistended. There is no rebound, voluntary guarding, or rigidity. : Deferred. No Palmer. EXTREMITIES: Non-edematous and not cyanotic. No clubbing. Good capillary refill. SKIN: No skin breakdown. Vital Signs (last 8hr) Date Time Temp Pulse Resp B/P (MAP) Pulse Ox O2 Delivery O2 Flow Rate FiO2 1/28/25 07:59 98.4 92 19 130/76 97 06/30/24 04:00 98.1 94 17 135/66 96 Room Air LABS: Laboratory: Test 06/30/24 05:01 06/29/24 16:02 06/29/24 03:29 Range/Units White Blood Count 9.4 4.8-10.8 K/uL Red Blood Count 4.52 4.50-6.20 MIL/uL Hemoglobin 14.2 14.0-18.0 g/dL Hematocrit 39.2 L 42-54 % Mean Corpuscular Volume 86.7 79-99 fL Mean Corpuscular Hemoglobin 31.4 27.0-33.0 pg Mean Corpuscular Hemoglobin Concent 36.2 H 32.0-36.0 g/dL Red Cell Distribution Width 13.4 11.0-15.5 % Platelet Count 183 130-400 K/uL Mean Platelet Volume 9.5 7.5-10.5 fL Nucleated Red Blood Cells 0.0 0.0-0.19 % Sodium Level 139 136-145 mmol/L Potassium Level 3.3 L 3.5-5.1 mmol/L Chloride Level 103 101-111 mmol/L Carbon Dioxide Level 20 L 21-32 mmol/L Blood Urea Nitrogen 17 7-18 mg/dL Creatinine 1.2 0.5-1.3 mg/dL Glomerular Filtration Rate Calc 62 >90 mL/min Random Glucose 135 H 70-105 mg/dL Total Calcium 8.7 8.5-10.1 mg/dL Magnesium Level 1.90 1.80-2.40 mg/dL Total Creatine Kinase 225 # 21-232 U/L Whole Blood Glucose 131 H 70-110 MG/DL Immature Granulocyte % (Auto) 0.4 0-1 % Neutrophils (%) (Auto) 73.4 40.0-77.0 % Lymphocytes (%) (Auto) 19.2 L 21.0-51.0 % Monocytes (%) (Auto) 5.9 3.0-13.0 % Eosinophils (%) (Auto) 0.5 0.0-8.0 % Basophils (%) (Auto) 0.6 0.0-5.0 % Neutrophils # (Auto) 5.8 1.8-7.7 K/uL Lymphocytes # (Auto) 1.5 1.0-4.8 K/uL Monocytes # (Auto) 0.5 0.1-1.0 K/uL Eosinophils # (Auto) 0.04 0.00-0.70 K/uL Basophils # (Auto) 0.05 0.00-0.20 K/uL Absolute Immature Granulocyte (auto 0.03 0-1 K/uL Current Medications Medications (Trade) Dose Ordered Sig/Jaxon Route PRN Reason Start Time Stop Time Status Last Admin Dose Admin Acetaminophen (TYLenol 500MG TAB) 500 mg Q6H PRN PO MILD PAIN (1-3) 06/27/24 16:00 07/27/24 15:59 06/28/24 02:56 500 MG Aspirin (Aspirin 81mg Ec Tab) 81 mg DAILY PO 06/28/24 09:00 07/28/24 08:59 06/30/24 09:00 81 MG Ceftriaxone Sodium (ROCEphine 1G INJ) 1 gm Q12H IVPB 06/27/24 16:30 07/07/24 16:29 06/30/24 01:41 1 GM Citalopram Hydrobromide (CeleXA 20MG TAB) 20 mg DAILY PO 06/28/24 09:00 07/28/24 08:59 06/30/24 09:00 20 MG Hydralazine HCl (APRESOLine 20MG INJ) 10 mg Q6H PRN IV ADMINISTER FOR SBP > 170 06/28/24 11:00 07/28/24 10:59 06/30/24 00:40 10 MG Lactated Ringer's 1,000 ml @ 80 mls/hr [id number] IV 06/27/24 16:00 07/27/24 15:59 06/30/24 04:57 80 MLS/HR Lorazepam (AtiVAN) 0.5 mg Q12H PRN IVP ANXIETY/AGITATION 06/27/24 20:30 06/29/24 12:48 DC 06/29/24 04:13 0.5 MG Lorazepam (AtiVAN) 0.5 mg Q6H PRN IVP ANXIETY/AGITATION 06/29/24 13:00 07/04/24 20:29 Losartan Potassium (CozAAR 25MG TAB) 25 mg DAILY PO 06/28/24 09:00 07/28/24 08:59 06/30/24 09:00 25 MG Magnesium Sulfate 50 ml @ 0 mls/hr PROTOCOL IV 06/27/24 16:30 06/27/24 20:24 DC 06/27/24 19:59 25 MLS/HR Magnesium Sulfate 50 ml @ 0 mls/hr PROTOCOL IV 06/27/24 20:30 07/27/24 20:29 06/30/24 06:22 15 MLS/HR Magnesium Sulfate 50 ml @ 0 mls/hr PROTOCOL PRN IV MAGNESIUM PROTOCOL 06/29/24 13:00 06/29/24 12:51 DC Pantoprazole Sodium (PROTonix 40MG INJ) 40 mg Q24H IVP 06/27/24 16:30 07/27/24 16:29 06/29/24 17:26 40 MG Potassium Chloride 100 ml @ 100 mls/hr AD PRN IV POTASSIUM PROTOCOL 06/27/24 16:30 07/27/24 16:29 06/30/24 04:56 100 MLS/HR Potassium Chloride 100 ml @ 100 mls/hr AD PRN IV POTASSIUM PROTOCOL 06/29/24 13:00 06/29/24 12:50 DC Potassium Chloride (K-Dur/Klor-Con 20meq) 20 meq AD PRN PO POTASSIUM PROTOCOL 06/27/24 16:30 07/27/24 16:29 Potassium Chloride (K-Dur/Klor-Con 20meq) 20 meq AD PRN PO POTASSIUM PROTOCOL 06/29/24 13:00 06/29/24 12:51 DC Potassium Chloride (KCl 10% Elixir 20meq/15ml) 20 meq AD PRN PO POTASSIUM PROTOCOL 06/27/24 16:30 07/27/24 16:29 06/29/24 20:28 20 MEQ Potassium Chloride (KCl 10% Elixir 20meq/15ml) 20 meq AD PRN PO POTASSIUM PROTOCOL 06/29/24 13:00 06/29/24 12:50 DC Quetiapine Fumarate (SEROquel 25 mg TAB) 25 mg HS PO 06/28/24 21:00 07/28/24 20:59 06/29/24 20:28 25 MG Thiamine HCl (Vitamin B-1) 100 mg Q24H IVP 06/27/24 16:00 07/27/24 15:59 06/29/24 17:26 100 MG DIAGNOSTICS / RADIOLOGY: [ ] ASSESSMENT: Acute delirium in the setting of advanced Alzheimer's dementia, POA Visual hallucinations, POA Insomnia, POA Recent history of fall, POA Debility/frailty, POA Elevated troponin, POA, rule out active ACS Rhabdomyolysis, POA Possible left patellar fracture versus bipartite left patella, POA History of UTI, POA History of type 2 diabetes mellitus, POA Hypertension, POA Hyperlipidemia, POA Blindness of bilateral eyes, POA Hypokalemia PLAN: Patient will be admitted to medical-surgical floor under telemetry monitoring Positive troponins through type 2 in the setting of rhabdomyolysis which is now resolved Patient continues to be confused, we will adjust Ativan 0.5 mg IV every 6 hours prn Urinalysis is remarkable, we will continue with IV antibiotics with Rocephin, patient will need to continue for two weeks Dr. Borges spoke with Dr. Hill with Cardiology, 2D echo obtained showing LVEF of 50-55%. Continue aspirin 81 mg daily, Patient has advanced dementia, Dr. Hernandez started patient on Seroquel, appreciate his recommendations X-ray of the left knee showed possible fracture versus bipartite patella, discussed with Dr. Boateng with Orthopedics for further evaluation Patient will continue with rest of the home medications All labs will be repeated in the morning Patient will benefit from palliative care, we will have social media coordinator follow this patient and case management to assist with discharge planning Currently under potassium coverage we will check a magnesium level in the a.m. as well No family member present at the bedside has requested full code for the patient, Case was seen and evaluated with Dr. Phillips, above plan was formulated ATTESTATION BY PHYSICIAN I have seen and examined the patient. I reviewed the documentation, medical decision making, and treatment plan as noted by the mid-level provider above. I agree with the findings and plan of care. NITA PHILLIPS MD, [facility] Jun 30, 2024 12:00
--- NOTE | 2024-06-30 12:29 | NUR ---
NURSES NOTE PATIENT'S ASKING REGARDING DISCHARGE PLANNING. SHE'S REQUESTING PATIENT TO BE DISCHARGED HOME TO HER CARE. EDUCATED ON RISK FOR FALLS AND INJURIES. VOICED UNDERSTANDING BUT AT THIS TIME WOULD PREFER TO TAKE HIM HOME. REQUESTS NOTIFIED TO PROVIDER, CATHY LOZANO NP AND CASE MANAGEMENT. NO NEW ORDERS GIVEN AT THIS TIME. WILL CONTINUE TO MONITOR.
--- NOTE | 2024-06-30 14:00 | NUR ---
BLOOD SUGAR BLOOD SUGAR CHECK SHOWED PATIENT'S BS @ 247. NOTIFIED PROVIDER, CATHY LOZANO NP WHILE ROUNDING ON FLOOR. VOICED UNDERSTANDING AND STATED WILL PUT IN ORDERS FOR SLIDING SCALE. WILL CONTINUE TO MONITOR.
[2024-06-30] MEDS ORDERED: PHARMACY COMMUNICATION MISC SCH (16:00)
--- NOTE | 2024-06-30 17:59 | PN ---
CARDIOLOGY Reason for consult: Elevated troponin HPI/story at presentation: This is a pleasant 79-year-old male with past medical history significant for advanced dementia presents with a fall and found to have rhabdomyolysis. Sitting on patient elevated troponin level, cardiology was consulted for further evaluation management Unable to get history from patient given advanced dementia Subjective: 06/27/2024 sedated 06/28/2024 AMS 06/29/2024 AMS 06/30/2024 lesss agitated Past medical history: See below Allergies, Meds See chart Review of systems not obtained Vitals see chart PHYSICAL EXAMINATION GENERAL: LETHARGUC 06/27/2024 HEENT: Nonicteric sclerae, non traumatic HEART: Regular rate and rhythm with no murmurs LUNGS: Clear to auscultation bilaterally ABDOMEN: No acute issues, non tender GENITAL, RECTAL: deferred SKIN: No rash NEUROLOGIC: LETHARGUC 06/27/2024 EXTREMITIES: No edema ASSESSMENT ALTERED MENTAL STATUS On sedation, 06/27/2024 In the setting of advanced Alzheimer's dementia Significant baseline debility ELEVATED TROPONIN In the setting rhabdomyolysis, 06/2024 Presented with a fall Peak troponin greater than 900 Elevated creatinine kinase at presentation HYPERTENSION, HYPERLIPIDEMIA CORE MEASURES Pending OTHER MEDICAL PROBLEMS History of urinary tract infection History of blindness History of appendectomy Left patella fracture versus bipartite left patella PLAN 06/27/2024 lethargic today after sedation. No active cardiac complaints noted prior to presentation. History. Troponin elevation thought to be type II in the setting of rhabdomyolysis. Even if patient did have possible ACS in the differential, and plans dementia, not the best candidate for ischemic evaluation. Will reevaluate after echocardiogram is complete. Seen and examined 06/27/2024 at around 8 PM 06/28/2024 Reviewed echocardiogram, has not been prelimed yet, patient does have no active chest pain. Mild wall motion changes noted in the distal anteroseptal apical shields, an echocardiogram completed today. Discussed extensively with the at bedside about plan of action. Discussed both approaches of aggressive care with cardiac catheterization PCI as indicated etc. versus conservative management with medical therapy given patient's advanced age, risk of procedure and need for antithrombotics post procedure, possible issues with cooperation during cardiac catheterization etc. and after extensive discussion, family agreed not to proceed with any invasive cardiovascular evaluation at this time and to just continue medical therapy. 06/29/2024 Mental status is poor, still fairly aggressive and trying to hurt staff. Per discussion with extensively yesterday, plan is for conservative management from a cardiac standpoint. Mental status issues. IVs have been pulled continuously. Psychiatry on board to address mental status. On hydralazine losartan aspirin labs are otherwise okay echocardiogram with borderline normal EF. Seen and examined 06/29/2024 at around 2100. 06/30/2024 More calm today, son at bedside, multiple questions regarding course discussed. Plans remain for conservative management for elevated troponins. Currently on losartan aspirin. No statins because of recent possible rhabdo. Seen and examined 06/30/2024 at around 1800 ATTESTATION I was involved substantially in the care of this patient Number and complexity of problems addressed:2 or more stable chronic conditions Amount and or complexity of data Review of prior external note(s) from each unique source: 2+ Ordering of each unique test : 0 Review of the result(s) of each unique test: 2+ Assessment requiring an independent historian(s): No Independent interpretation of test performed by another MD/QHCP/appropriate source (not separately reported) : No Discussion of management or test interpretation with external MD/QHCP/appropriate source (not separately reported) : No Risk status (cardiac, billing related):Moderate Vitals/Labs Vital Signs Date Time Temp Pulse Resp B/P (MAP) Pulse Ox O2 Delivery O2 Flow Rate FiO2 06/30/24 16:42 96.1 79 18 124/66 95 06/30/24 09:00 Room Air* 0 21 Laboratory Tests 06/30/24 05:01 Medications Current Medications Lorazepam 2 mg ONCE ONCE IVP Last administered on 06/27/24at 15:32; Start 06/27/24 at 15:30; Stop 06/27/24 at 15:31; Status DC Sodium Chloride 1,000 ml @ 0 mls/hr ONCE ONCE IV Last administered on 06/27/24at 15:32; Start 06/27/24 at 15:30; Stop 06/27/24 at 15:31; Status DC Lactated Ringer's 1,000 ml @ 80 mls/hr [id number] IV Last administered on 06/30/24at 04:57; Start 06/27/24 at 16:00; Stop 07/27/24 at 15:59 Acetaminophen 500 mg Q6H PRN PO Last administered on 06/28/24at 02:56; Start 06/27/24 at 16:00; Stop 07/27/24 at 15:59 Thiamine HCl 100 mg Q24H IVP Last administered on 06/30/24at 16:15; Start 06/27/24 at 16:00; Stop 07/27/24 at 15:59 Ceftriaxone Sodium 1 gm Q12H IVPB Last administered on 06/30/24at 16:15; Start 06/27/24 at 16:30; Stop 07/07/24 at 16:29 Pantoprazole Sodium 40 mg Q24H IVP Last administered on 06/30/24at 16:15; Start 06/27/24 at 16:30; Stop 07/27/24 at 16:29 Potassium Chloride 100 ml @ 100 mls/hr AD PRN IV Last administered on 06/30/24at 04:56; Start 06/27/24 at 16:30; Stop 07/27/24 at 16:29 Potassium Chloride 20 meq AD PRN PO Last administered on 06/29/24at 20:28; Start 06/27/24 at 16:30; Stop 07/27/24 at 16:29 Potassium Chloride 20 meq AD PRN PO; Start 06/27/24 at 16:30; Stop 07/27/24 at 16:29 Magnesium Sulfate 50 ml @ 0 mls/hr PROTOCOL IV Last administered on 06/27/24at 19:59; Start 06/27/24 at 16:30; Stop 06/27/24 at 20:24; Status DC Aspirin 81 mg DAILY PO Last administered on 06/30/24at 09:00; Start 06/28/24 at 09:00; Stop 07/28/24 at 08:59 Losartan Potassium 25 mg DAILY PO Last administered on 06/30/24at 09:00; Start 06/28/24 at 09:00; Stop 07/28/24 at 08:59 Citalopram Hydrobromide 20 mg DAILY PO Last administered on 06/30/24at 09:00; Start 06/28/24 at 09:00; Stop 07/28/24 at 08:59 Magnesium Sulfate 50 ml @ 0 mls/hr PROTOCOL IV Last administered on 06/30/24at 06:22; Start 06/27/24 at 20:30; Stop 07/27/24 at 20:29 Aspirin 81 mg ONCE ONCE PO Last administered on 06/27/24at 20:29; Start 06/27/24 at 20:30; Stop 06/27/24 at 20:31; Status DC Lorazepam 0.5 mg Q12H PRN IVP Last administered on 06/29/24at 04:13; Start 06/27/24 at 20:30; Stop 06/29/24 at 12:48; Status DC Hydralazine HCl 10 mg Q6H PRN IV Last administered on 06/30/24at 00:40; Start 06/28/24 at 11:00; Stop 07/28/24 at 10:59 Quetiapine Fumarate 25 mg HS PO Last administered on 06/29/24at 20:28; Start 06/28/24 at 21:00; Stop 06/30/24 at 15:54; Status DC Potassium Chloride 40 meq ONCE ONCE PO; Start 06/29/24 at 13:00; Stop 06/29/24 at 13:01; Status DC Potassium Chloride 100 ml @ 100 mls/hr AD PRN IV; Start 06/29/24 at 13:00; Stop 06/29/24 at 12:50; Status DC Potassium Chloride 20 meq AD PRN PO; Start 06/29/24 at 13:00; Stop 06/29/24 at 12:50; Status DC Potassium Chloride 20 meq AD PRN PO; Start 06/29/24 at 13:00; Stop 06/29/24 at 12:51; Status DC Magnesium Sulfate 50 ml @ 0 mls/hr PROTOCOL PRN IV; Start 06/29/24 at 13:00; Stop 06/29/24 at 12:51; Status DC Lorazepam 0.5 mg Q6H PRN IVP; Start 06/29/24 at 13:00; Stop 07/04/24 at 20:29 Quetiapine Fumarate 100 mg HS PO; Start 06/30/24 at 21:00; Stop 07/30/24 at 20:59 Pharmacy Profile Note 1 each ONCE MISC; Start 06/30/24 at 16:00; Stop 06/30/24 at 16:02; Status DC CATRACHITA WEBER MD Jun 30, 2024 17:59
[2024-06-30] MEDS: queTIAPine fuMARate 100 MG TAB PO SCH (19:46)
[2024-06-30] MEDS: queTIAPine fuMARate 100 MG TAB ONE (19:47)
[2024-07-01] VITALS: BP 130/80; PULSE 78; RESP 20; TEMP 98.5
--- NOTE | 2024-07-01 00:29 | NUR ---
nursing pm note patient alert and oriented times person. patient is blind. plan of care discussed with patient and he says he wants apple sauce. He has no pain tonight. He has slept most of the night. josefina guerrero, at bedside. door open, bed alarm on, 2 side rails up. will continue to monitor patient.
[2024-07-01 04:00] VITALS: BP 140/80; PULSE 83; TEMP 98.1
[2024-07-01 04:48] LABS: MEAN CORPUSCULAR HEMOGLOBIN 31.3 pg (27.0-33.0); MEAN CORPUSCULAR HGB CONC 35.8 g/dL (32.0-36.0); MEAN CORPUSCULAR VOLUME 87.4 fL (79-99); RED BLOOD CELL COUNT(AUTO) 4.12 MIL/uL (4.50-6.20); RED CELL DISTRIBUTION WIDTH 13.6 % (11.0-15.5); WHITE BLOOD COUNT (AUTO) 4.6 K/uL (4.8-10.8)
[2024-07-01 05:00] LABS: CREATININE 1.1 mg/dL (0.5-1.3); MAGNESIUM 1.9 mg/dL (1.80-2.40); POTASSIUM 3.3 mmol/L (3.5-5.1)
[2024-07-01 05:10] LABS: HEMOGLOBIN A1C 6.3 % (4.0-6.0)
[2024-07-01] MEDS: INSULIN humuLIN R 100 UNIT/ML 3ML SQ SCH (05:13)
[2024-07-01 08:00] VITALS: BP 133/74; PULSE 75; RESP 15; TEMP 97.3
[2024-07-01 09:00] VITALS: O2SAT 98
[2024-07-01] MEDS: PoTASSium chloRIDE 20MEQ ER 20 MEQ ERTAB PO ONE (10:02)
[2024-07-01 12:00] VITALS: BP 124/70; PULSE 81; RESP 15; TEMP 99.3
--- NOTE | 2024-07-01 12:30 | NUR ---
Patient seen and evaluated with spouse at bedside. Patient more cooperative today, was able to tolerate up to chair with PT and moderate assistance as he has tendency to retropulse. Patient was able to take a few steps to bedside chair. PT recommends DC to rehab however spouse may not agree. next receommenation is for home health PT. PT team to follow. Addendum: 07/01/24 at 1332 by MAKSIM YOON PT Amended: Links added.
--- NOTE | 2024-07-01 12:58 | PN ---
[facility] PROGRESS NOTE Date of Service: Jul 01, 2024 Time of Service: 12:48 SUBJECTIVE: [ Patient is a 79-year-old male who is awake and alert oriented to person and place but not to time. He does have a history of advanced Alzheimer's dementia. He was admitted with a history of a fall and rhabdomyolysis and elevated troponin. He is in no acute distress at the present time he denies chest pain or shortness for breath. 06/29 patient is currently seen in 405, he is on one-to-one supervision. Apparently patient is removing his IV, already removed 3 times in the past24 hours. At this time we will adjust antianxiety medication with Ativan 0.5 mg every 6 hours. We will continue to monitor closely. Continue with IV fluids. We will request physical therapy. Possible placement.] 06/30/2024 patient was evaluated in the room, he is lying in bed in no acute distress. Patient was confused at this time. Yesterday patient had issues with behavior and was started anti anxiety. We will request PT to evaluate and treat and Case Management evaluation for sniff to continue with IV antibiotics. He is afebrile. Labs reviewed. No family at bedside. 07/01 patient was evaluated in the room currently on one-to-one supervision. Patient apparently had a better night last night. He continues with IV antibiotics. During rounds no family at bedside. Plan is for patient to continue with [facility] facility disposition for continuation of PT and IV antibiotics. REVIEW OF SYSTEMS Ten points were reviewed and negative PHYSICAL EXAM GENERAL APPEARANCE: The patient is awake, alert, and oriented, in no acute cardiopulmonary distress. NEUROLOGICAL: Cranial nerves II-XII grossly intact. Motor is 5/5 in bilateral upper and lower extremities proximal to distal. No sensory deficits. HEENT: Face is symmetric. Pupils are equal and reactive. Extraocular movements are intact. NECK: Supple. No JVD. No thyromegaly. No submental, submandibular, pre- /postauricular, occipital or supraclavicular lymphadenopathy. CHEST: Normal chest expansion. No Telemetry. LUNGS: Absence of any rales, rhonchi or any wheezing. CARDIOVASCULAR: Regular. S1 and S2 normal. No appreciable rubs, murmurs or gallops. ABDOMEN: Soft, nontender, and nondistended. There is no rebound, voluntary guarding, or rigidity. : Deferred. No Palmer. EXTREMITIES: Non-edematous and not cyanotic. No clubbing. Good capillary refill. SKIN: No skin breakdown. Vital Signs (last 8hr) Date Time Temp Pulse Resp B/P (MAP) Pulse Ox O2 Delivery O2 Flow Rate FiO2 07/01/24 12:00 99.3 81 15 124/70 97 Room Air 07/01/24 09:00 98 Room Air* 0 21 07/01/24 08:00 97.3 75 15 133/74 98 LABS: Laboratory: Test 07/01/24 11:13 07/01/24 04:18 06/30/24 05:01 Range/Units Whole Blood Glucose 147 H 70-110 MG/DL White Blood Count 4.6 #L 4.8-10.8 K/uL Red Blood Count 4.12 L 4.50-6.20 MIL/uL Hemoglobin 12.9 L 14.0-18.0 g/dL Hematocrit 36.0 L 42-54 % Mean Corpuscular Volume 87.4 79-99 fL Mean Corpuscular Hemoglobin 31.3 27.0-33.0 pg Mean Corpuscular Hemoglobin Concent 35.8 32.0-36.0 g/dL Red Cell Distribution Width 13.6 11.0-15.5 % Platelet Count 140 130-400 K/uL Mean Platelet Volume 9.6 7.5-10.5 fL Nucleated Red Blood Cells 0.0 0.0-0.19 % Sodium Level 139 136-145 mmol/L Potassium Level 3.3 L 3.5-5.1 mmol/L Chloride Level 104 101-111 mmol/L Carbon Dioxide Level 28 21-32 mmol/L Blood Urea Nitrogen 13 7-18 mg/dL Creatinine 1.1 0.5-1.3 mg/dL Glomerular Filtration Rate Calc 68 >90 mL/min Random Glucose 248 #H 70-105 mg/dL Hemoglobin A1c 6.3 H 4.0-6.0 % Estimated Average Glucose (eAG) 134 H 70-126 mg/dL Total Calcium 8.3 L 8.5-10.1 mg/dL Magnesium Level 1.90 1.80-2.40 mg/dL Total Creatine Kinase 225 # 21-232 U/L Current Medications Medications (Trade) Dose Ordered Sig/Jaxon Route PRN Reason Start Time Stop Time Status Last Admin Dose Admin Acetaminophen (TYLenol 500MG TAB) 500 mg Q6H PRN PO MILD PAIN (1-3) 06/27/24 16:00 07/27/24 15:59 06/28/24 02:56 500 MG Aspirin (Aspirin 81mg Ec Tab) 81 mg DAILY PO 06/28/24 09:00 07/28/24 08:59 07/01/24 10:02 81 MG Ceftriaxone Sodium (ROCEphine 1G INJ) 1 gm Q12H IVPB 06/27/24 16:30 07/07/24 16:29 07/01/24 02:30 1 GM Citalopram Hydrobromide (CeleXA 20MG TAB) 20 mg DAILY PO 06/28/24 09:00 07/28/24 08:59 07/01/24 10:02 20 MG Hydralazine HCl (APRESOLine 20MG INJ) 10 mg Q6H PRN IV ADMINISTER FOR SBP > 170 06/28/24 11:00 07/28/24 10:59 06/30/24 00:40 10 MG Insulin Human Regular (humuLIN R 100 UNIT/ML 3ML) INSULIN SLIDING SCAL... ACHS SQ 07/01/24 07:30 07/31/24 07:29 07/01/24 06:04 4 UNIT Lactated Ringer's 1,000 ml @ 80 mls/hr [id number] IV 06/27/24 16:00 07/27/24 15:59 07/01/24 10:02 80 MLS/HR Lorazepam (AtiVAN) 0.5 mg Q12H PRN IVP ANXIETY/AGITATION 06/27/24 20:30 06/29/24 12:48 DC 06/29/24 04:13 0.5 MG Lorazepam (AtiVAN) 0.5 mg Q6H PRN IVP ANXIETY/AGITATION 06/29/24 13:00 07/04/24 20:29 Losartan Potassium (CozAAR 25MG TAB) 25 mg DAILY PO 06/28/24 09:00 07/28/24 08:59 07/01/24 10:02 25 MG Magnesium Sulfate 50 ml @ 0 mls/hr PROTOCOL IV 06/27/24 16:30 06/27/24 20:24 DC 06/27/24 19:59 25 MLS/HR Magnesium Sulfate 50 ml @ 0 mls/hr PROTOCOL IV 06/27/24 20:30 07/27/24 20:29 07/01/24 06:03 15 MLS/HR Magnesium Sulfate 50 ml @ 0 mls/hr PROTOCOL PRN IV MAGNESIUM PROTOCOL 06/29/24 13:00 06/29/24 12:51 DC Pantoprazole Sodium (PROTonix 40MG INJ) 40 mg Q24H IVP 06/27/24 16:30 07/27/24 16:29 06/30/24 16:15 40 MG Pharmacy Profile Note (Pharmacy Communication) 1 each ONCE MISC 06/30/24 16:00 06/30/24 16:02 DC Potassium Chloride 100 ml @ 100 mls/hr AD PRN IV POTASSIUM PROTOCOL 06/27/24 16:30 07/27/24 16:29 07/01/24 06:03 100 MLS/HR Potassium Chloride 100 ml @ 100 mls/hr AD PRN IV POTASSIUM PROTOCOL 06/29/24 13:00 06/29/24 12:50 DC Potassium Chloride (K-Dur/Klor-Con 20meq) 20 meq AD PRN PO POTASSIUM PROTOCOL 06/27/24 16:30 07/27/24 16:29 Potassium Chloride (K-Dur/Klor-Con 20meq) 20 meq AD PRN PO POTASSIUM PROTOCOL 06/29/24 13:00 06/29/24 12:51 DC Potassium Chloride (KCl 10% Elixir 20meq/15ml) 20 meq AD PRN PO POTASSIUM PROTOCOL 06/27/24 16:30 07/27/24 16:29 06/29/24 20:28 20 MEQ Potassium Chloride (KCl 10% Elixir 20meq/15ml) 20 meq AD PRN PO POTASSIUM PROTOCOL 06/29/24 13:00 06/29/24 12:50 DC Quetiapine Fumarate (SEROquel 100 mg TAB) 100 mg HS PO 06/30/24 21:00 07/30/24 20:59 06/30/24 19:46 100 MG Quetiapine Fumarate (SEROquel 25 mg TAB) 25 mg HS PO 06/28/24 21:00 06/30/24 15:54 DC 06/29/24 20:28 25 MG Thiamine HCl (Vitamin B-1) 100 mg Q24H IVP 1/25/25 16:00 07/27/24 15:59 06/30/24 16:15 100 MG DIAGNOSTICS / RADIOLOGY: [ ] ASSESSMENT: Acute delirium in the setting of advanced Alzheimer's dementia, POA Visual hallucinations, POA Insomnia, POA Recent history of fall, POA Debility/frailty, POA Elevated troponin, POA, rule out active ACS Rhabdomyolysis, POA Possible left patellar fracture versus bipartite left patella, POA History of UTI, POA History of type 2 diabetes mellitus, POA Hypertension, POA Hyperlipidemia, POA Blindness of bilateral eyes, POA Hypokalemia PLAN: Patient will be admitted to medical-surgical floor under telemetry monitoring Positive troponins through type 2 in the setting of rhabdomyolysis which is now resolved Patient continues to be confused, we will adjust Ativan 0.5 mg IV every 6 hours prn Urinalysis is remarkable, we will continue with IV antibiotics with Rocephin, patient will need to continue for two weeks Dr. Borges spoke with Dr. Hill with Cardiology, 2D echo obtained showing LVEF of 50-55%. Continue aspirin 81 mg daily, Patient has advanced dementia, we resumed his home medications for Seroquel 100 mg p.o. at HS X-ray of the left knee showed possible fracture versus bipartite patella, discussed with Dr. Boateng with Orthopedics no surgery recommended Patient will continue with rest of the home medications All labs will be repeated in the morning Patient will benefit from palliative care, we will have social services technician follow this patient and case management to assist with discharge planning Currently under potassium coverage we will check a magnesium level in the a.m. as well No family member present at the bedside has requested full code for the patient, Case was seen and evaluated with Dr. Phillips, above plan was formulated ATTESTATION BY PHYSICIAN I have seen and examined the patient. I reviewed the documentation, medical decision making, and treatment plan as noted by the mid-level provider above. I agree with the findings and plan of care. NITA PHILLIPS MD, [facility] Jul 01, 2024 12:58
--- NOTE | 2024-07-01 14:22 | DS ---
Discharge Summary Hospital Course Summary: 79-year-old male with underlying history of hypertension, hyperlipidemia, advanced Alzheimer's dementia (originally diagnosed about 12 years ago) who presented to the ER for further evaluation of agitation, confusion, hallucinations and inability to sleep for about 36 hours. Patient received 2 mg of IV Ativan earlier and unable to provide any history whatsoever, patient is sleeping on the stretcher. Patient's was present at bedside and states that patient has had long-term history of Alzheimer's dementia. He needs assistance with activities of daily l iving including bathing, cleaning in eating. Over the last several days, patient has been very agitated, unable to sleep and was complaining of mild headache as well. He is not very active and is mostly sedentary. Patient had a fall yesterday but is unsure if patient hit his head. He has had chronic significant pain of his bilateral lower extremities that limits his activities. Patient is followed by Dr. Serrano as outpatient and previously was on Seroquel, currently he is being escitalopram as outpatient. He is currently not on any antipsychotics or benzodiazepine. Does report that, when patient gets UTIs, he gets more agitated and confused. 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 states that patient previously has not been evaluated by Cardiology as outpatient. On presentation to the hospital, patient was noted to be afebrile and hemodynamically stable. Labs on presentation showed, WBC count of 9400, hemoglobin of 14.3, platelet count of 507095. BMP remarkable for sodium 139, potassium 3.5, creatinine 1.3, blood glucose of 250, CK of 592, troponin noted to be at 281. states that patient did take two doses of aspirin earlier this morning prior to coming to the ER. He will be admitted for further management of worsening delirium in the setting of advanced dementia. Patient is dehydrated with recent fall and cardiac troponin is also noted to be elevated. CK is also elevated suggestive of mild rhabdomyolysis. has requested full code for this patient even though I explained to her that patient has advanced dementia. Patient will be admitted under hospitalist service. Patient will receive IV fluid and IV antibiotic therapy., we will monitor this patient closely. Admitted and he was evaluated by Dr. Boateng for which no surgical intervention but consider possible neuropathic pain as source of possible mechanical treatment as necessary. He was also evaluated cardiology Dr. Hill due to elevated troponin level but he indicated that the elevation of troponin that is thought to be given due to the setting of rhabdomyolysis for which is now resolved. Given that patient has advanced dementia Alzheimer's disease, he is unable to follow commands and he continued to be weak. Family/ have decided for him to continue rehabilitation at a senior living for continuation of IV antibiotics and physical therapy. At this point, patient has been cleared for discharge and accepted at the senior living facility. He is stable and she would be able to be discharged today. Digital Performance Analyst(s): Dr. Hill- cardiology Dr. Boateng- orthopedic surgeon Procedure(s): [facility] [address] [place] [address] IMAGING REPORT Signed PATIENT: FAYE DWYER MR#: [id number] : 1945 SEX: M AGE: 79 LOCATION: [facility] ORDER 16 STATUS: ADM IN REPORT#: [id number] SERVICE 15 REASON: r/o any patella fracture ORDERING PHYSICIAN: SHAYNE TOWNSEND MD PROCEDURE: KNEE 3V LT - KNEE 3VWS LT KNEE 3VWS LT INDICATION: r/o any patella fracture TECHNIQUE: KNEE 3VWS LT. FINDINGS/IMPRESSION: Bipartite patella versus chronic fracture of the superior patella, as described on prior study. Correlate clinically. There is mild soft tissue swelling No radiopaque foreign body is identified. There is diffuse osteopenia limiting evaluation of the study. DICTATED BY: RAY BOGGS MD DATE: 06/27/241906 ELECTRONICALLY SIGNED BY: RAY BOGGS MD DATE: 06/27/24 191 [facility] [address] [place] [id number] IMAGING REPORT Signed PATIENT: FAYE DWYER MR#: [id number] : 1945 SEX: M AGE: 79 LOCATION: [facility] ORDER 1604 STATUS: ADM IN REPORT#: [id number] SERVICE 1606 REASON: elevated troponin, Dr. Hill to read ORDERING PHYSICIAN: SHAYNE TOWNSEND MD PROCEDURE: ECHO CMP - ECHO 2-D COMPLETE APPROVED REPORT EXAM: Two-dimensional and M-mode echocardiogram with Doppler and color Doppler. INDICATION ICD: elevated troponin 2D Dimensions RVDd 4.0 cm LVEF(%) 67.4 (>50%) LVED Vol(simp.) 63.7 mL IVSd 0.8 (0.7-1.1cm) FS(%) 37 % LVES Vol(simp.) 23.1 mL LVDd 3.8 (3.8-5.6cm) LA (2D) 4.1 (1.6-4.0cm) LVEF(%, simp.) 64 % PWd 0.7 (0.7-1.1cm) Ao Root(2D) 3.3 (2.0-3.7cm) LA ESV INDEX (4CH) 19.40 mL/m2 IVSs 0.8 cm LVOT diam 2.3 (1.8-2.4cm) LA ESV INDEX (2CH) 28.60 mL/m2 LVDs 2.4 (2.5-4.0cm) LA ESV INDEX (BP) 22.20 mL/m2 PWs 1.3 cm Deformation Strain Apical 4 17.0 % Apical 2 15.0 % Apical 3 11.0 % Global Strain 14.0 % M-Mode Dimensions EPSS 1.1 cm LA (MM) 3.9 (1.6-4.0cm) Ao Root(MM) 3.1 (2.0-3.7cm) Aortic Valve AoV VTI 0.3 m Ao Mean GR 3.0 mmHg LVOT VTI 0.21 m MAEGAN (VMAX) 3.2 cm2 MAEGAN (VTI) 3.2 cm2 Mitral Valve MV E Vmax 78.6 cm/s DECEL Time 239 ms MV A Vmax 92.2 cm/s P 1/2 T 78 ms E/A ratio 0.9 MVA (PHT) 2.8 cm2 MR Max PG 38 mmHg TDI E/E' Medial 16.4 E/E' Lateral 9.7 Medial E' Peak V 4.80 cm/s Lateral E' Peak V 8.10 cm/s Left Ventricle The left ventricle is normal size. Mild anteroseptal and apical hypokinesis There is normal left ventricular wall thickness. LVEF is 50-55%. Indeterminate diastolic dysfunction. Right Ventricle The right ventricle is normal size. The right ventricular systolic function is normal. Atria The left atrium size is normal. The right atrium size is normal. Aortic Valve The aortic valve is normal in structure and function. No aortic regurgitation is present. There is no aortic valvular stenosis. Mitral Valve The mitral valve is normal in structure. There is no mitral valve regurgitation noted. There is no mitral valve stenosis. Tricuspid Valve The tricuspid valve is normal in structure. There is no tricuspid valve regurgitation noted. Pulmonic Valve The pulmonary valve is normal in structure. There is no pulmonic valvular regurgitation. Great Vessels The aortic root is normal in size. The IVC is normal in size and collapses >50% with inspiration. Pericardium There is no pericardial effusion. Other Information Technically limited study due to body habitus. Conclusion LVEF is 50-55%. Mild anteroseptal and apical hypokinesis There is normal left ventricular wall thickness. The left ventricle is normal size. Indeterminate diastolic dysfunction. There is no pericardial effusion. Study quality was adequate DICTATED BY: CATRACHITA WEBER MD DATE: 06/28/24 1200 ELECTRONICALLY SIGNED BY: CATRACHITA WEBER MD DATE: 06/28/242126 [address] [place], [place] [id number] IMAGING REPORT Signed PATIENT: FAYE DWYER MR#: [id number] : 1945 SEX: M AGE: 79 LOCATION: [facility] ORDER 1605 [facility] REPORT#: [id number] SERVICE 1558 REASON: recent fall, r/o any fractures ORDERING PHYSICIAN: SHAYNE TOWNSEND MD PROCEDURE: PELVIS - PELVIS 1-2VWS PELVIS 1-2VWS HISTORY: recent fall, r/o any fractures TECHNIQUE: Frontal view of the pelvis was performed. FINDINGS/IMPRESSION: No displaced fracture or dislocation is identified. Correlate clinically. Diffuse osteopenia is seen degrading evaluation of the study. Degenerative changes of the visualized spine are seen. DICTATED BY: RAY BOGGS MD DATE: 06/27/241654 ELECTRONICALLY SIGNED BY: RAY BOGGS MD DATE: 06/27/241700 [place] [address] [place] [phone] IMAGING REPORT Signed PATIENT: FAYE DWYER MR#: [id number] : 1945 SEX: M AGE: 79 LOCATION: [facility] ORDER 04 STATUS: [facility] REPORT#: [id number] SERVICE 1551 REASON: recent fall, r/o any fractures ORDERING PHYSICIAN: SHAYNE TOWNSEND MD PROCEDURE: KNEE 2VBIL - KNEE 2VW BILATERAL KNEE 2VW BILATERAL INDICATION: recent fall, r/o any fractures TECHNIQUE: KNEE 2VW BILATERAL. FINDINGS/IMPRESSION: Bipartite versus chronic fracture of the left patella. Correlate clinically. No acute displaced fractures identified. There is no joint effusion or soft tissue swelling. Vascular calcifications are noted. There is diffuse osteopenia limiting evaluation of the study. DICTATED BY: RAY BOGGS MD DATE: 06/27/241654 ELECTRONICALLY SIGNED BY: RAY BOGGS MD DATE: 06/27/24 [facility] [place] [address] [place] [phone] IMAGING REPORT Signed PATIENT: FAYE DWYER MR#: [id number] : 1945 SEX: M AGE: 79 LOCATION: [facility] ORDER 04 STATUS: [facility] REPORT#: [id number] SERVICE REASON: recent fall, r/o any fractures ORDERING PHYSICIAN: SHAYNE TOWNSEND MD PROCEDURE: KNEE 2VBIL - KNEE 2VW BILATERAL KNEE 2VW BILATERAL INDICATION: recent fall, r/o any fractures TECHNIQUE: KNEE 2VW BILATERAL. FINDINGS/IMPRESSION: Bipartite versus chronic fracture of the left patella. Correlate clinically. No acute displaced fractures identified. There is no joint effusion or soft tissue swelling. Vascular calcifications are noted. There is diffuse osteopenia limiting evaluation of the study. DICTATED BY: RAY BOGGS MD DATE: 06/27/241654 ELECTRONICALLY SIGNED BY: RAY BOGGS MD DATE: 06/27/[address] [place] [phone] IMAGING REPORT Signed PATIENT: FAYE DWYER MR#: [id number] : 1945 SEX: M AGE: 79 LOCATION: [facility] ORDER 132 STATUS: REG ER REPORT#: [id number] SERVICE 19 REASON: altered ORDERING PHYSICIAN: PRADEEP SOTELO DO PROCEDURE: HEAD WO - CT HEAD/BRAIN W/O CONTRAST CT HEAD WITHOUT CONTRAST INDICATION: Altered mental status TECHNIQUE: Noncontrast axial helical CT images from the vertex through the skull base using 5 mm slice thickness without contrast material. Coronal and sagittal reconstructions were also included. Dose reduction techniques was used using integrated, automated and adaptive dose reduction exposure control. CT was performed with one or more of the following dose reduction techniques: Automated exposure control, adjustment of the mA and/or kV according to patient size, or use of iterative reconstruction technique. COMPARISON: 03/12/2020 FINDINGS: Scattered and coalescent subcortical and periventricular white matter low attenuating areas likely represent residual of chronic small vessel arteriopathy and/or remote vascular insult. Generalized mild cerebral cortical atrophy is present.. No evidence for abnormal extra-axial fluid collections or masses. The ventricles and sulci are normal in size and configuration. No evidence for intracranial parenchymal, epidural, or subdural hemorrhage, mass effect or midline shift. The gibson-white matter differentiation is well preserved. No secondary evidence to suggest acute ischemia. Mild calcific plaque is present along the shields of the cavernous segments of both internal carotid arteries. The brainstem and cerebellum appear normal. The visualized orbits appear unremarkable. The visible paranasal sinuses and mastoid air cells are clear. The calvarium appears normal. IMPRESSION: Chronic white matter ischemic changes, mild brain atrophy, and arteriosclerotic disease as described, without acute component. DICTATED BY: BAIRON OCAMPO MD DATE: 06/27/24 142 ELECTRONICALLY SIGNED BY: BAIRON OCAMPO MD DATE: 06/27/24 1432 Assessment/Plan: Discharge diagnoses Acute delirium in the setting of advanced Alzheimer's dementia, POA Visual hallucinations, POA Insomnia, POA Recent history of fall, POA Debility/frailty, POA Elevated troponin, POA, rule out active ACS Rhabdomyolysis, POA Possible left patellar fracture versus bipartite left patella, POA History of UTI, POA History of type 2 diabetes mellitus, POA Hypertension, POA Hyperlipidemia, POA Blindness of bilateral eyes, POA Hypokalemia Admitting diagnoses Acute delirium in the setting of advanced Alzheimer's dementia, POA Visual hallucinations, POA Insomnia, POA Recent history of fall, POA Debility/frailty, POA Elevated troponin, POA, rule out active ACS Rhabdomyolysis, POA Possible left patellar fracture versus bipartite left patella, POA History of UTI, POA History of type 2 diabetes mellitus, POA Hypertension, POA Hyperlipidemia, POA Blindness of bilateral eyes, POA Home Medications: Reported Medications Aspirin (Aspirin EC) 81 Mg Tablet.dr, 1 TAB PO DAILY for 30 Days, #30 TAB 0 Refills 25 Losartan Potassium (Losartan Potassium) 25 Mg Tablet, 1 TAB PO DAILY for 30 Days, #30 TAB 0 Refills 25/25 Ergocalciferol (Vitamin D2) (Vitamin D2) 1,250 Mcg (09993 Unit) Capsule, 1 CAP PO QWEEK for 28 Days, #4 CAP 0 Refills 06/27/25 Escitalopram Oxalate (Escitalopram Oxalate) 10 Mg Tablet, 1 TAB PO DAILY for 30 Days, #30 TAB 0 Refills 06/27/25 Clonazepam (Clonazepam) 0.25 Mg Tab.rapdis, 0.25 MG PO BID, TAB 03/12/20 Quetiapine Fumarate (Quetiapine Fumarate) 100 Mg Tablet, 100 MG PO HS, TAB 03/12/20 Sertraline HCl (Sertraline HCl) 25 Mg Tablet, 25 MG PO DAILY, TAB 03/12/20 Metformin HCl (Metformin HCl) 1,000 Mg Tablet, 1000 MG PO BIDMEALS, TAB 03/12/20 Enalapril Maleate (Enalapril Maleate) 20 Mg Tablet, 20 MG PO DAILY, TAB 03/12/20 Glipizide (Glipizide) 10 Mg Tablet, 10 MG PO BID, TAB 03/12/20 Discontinued Reported Medications Glipizide (Glipizide ER) 5 Mg Tab.er.24, 1 TAB PO DAILY for 30 Days, #30 TAB 0 Refills 06/27/24 Time spent arranging discharge: 31-60 minutes ATTESTATION BY PHYSICIAN I have seen and examined the patient. I reviewed the documentation, medical decision making, and treatment plan as noted by the mid-level provider above. I agree with the findings and plan of care. NITA JIMÉNEZ MD, [facility] Jul 01, 2024 14:22
--- NOTE | 2024-07-01 15:57 | NUR ---
ATTEMPTED TO GIVE REPORT TO [facility]. SPOKE WITH A NURSE STATING SHE WILL TRANSFER ME TO A DIFFERENT NURSE, WAS TRANSFERRED AND THE LINE WENT . ATTEMPTED TO CALL AGAIN, BEEN ON HOLD FOR 10 MINUTES. WILL ATTEMPT AGAIN. PLAN OF CARE ON GOING.
[2024-07-01 16:00] VITALS: BP 148/78; PULSE 77; RESP 16; TEMP 98
--- NOTE | 2024-07-01 16:29 | NUR ---
DISCHARGE PATIENT DISCHARGED TO [facility]. PATIENT IS TO BE GOING WITH IV PER REQUEST OF NURSE, PATIENT WILL BE CONTINUING WITH ROCEPHIN IV UNTIL 07/07/24. PATIENT AND FAMILY AT BEDSIDE VERBALIZE UNDERSTANDING OF DISCHARGE PAPERWORK. PATIENT IS TO FOLLOW UP WITH PCP ONCE DISCHARGED FROM FACILITY, SPOKE WITH NURSE FROM [facility], THEY ARE AWARE OF PENDING APPOINTMENT. REPORT GIVEN TO CAROLEE FLOYD LVN FROM [facility]. PENDING EMS TO TRANSFER PATIENT.
--- NOTE | 2024-07-01 17:21 | NUR ---
EMS HERE TO TRANSFER PATIENT.
== END 2024-07-01 17:20 | DRG 57 ==
LOC: EDH 13:08 → EDHIP 15:59 → 4BH 23:42
PROVIDERS: ADMIT Internal Medicine; ATTEND Internal Medicine
DX: G30.9 Alzheimer's disease, unspecified (principal); S82.002A Unspecified fracture of left patella, initial encounter for closed fracture; M62.82 Rhabdomyolysis; F02.811 Dementia in other diseases classified elsewhere, unspecified severity, with agitation; F05 Delirium due to known physiological condition; I24.9 Acute ischemic heart disease, unspecified; I10 Essential (primary) hypertension; G47.00 Insomnia, unspecified; E78.5 Hyperlipidemia, unspecified; E11.9 Type 2 diabetes mellitus without complications; E87.6 Hypokalemia; E86.0 Dehydration; Q74.1 Congenital malformation of knee; E03.9 Hypothyroidism, unspecified; H54.3 Unqualified visual loss, both eyes; Z87.440 Personal history of urinary (tract) infections; Z90.49 Acquired absence of other specified parts of digestive tract; Z79.899 Other long term (current) drug therapy
CPT/HCPCS: 36415; 70450; 71045; 72170; 73562; 73565; 74230; 80048; 80076; 81001; 82140; 82550; 82948; 83036; 83735; 83880; 84132; 84145; 84443; 84484; 85025; 85027; 86140; 87086; 92522; 92610; 92611; 93005; 93306; 93356; G0378; J0360; J0696; J1815; J2060; J2470; J3411; J3475; J3480; J7030; 73560